=== PATIENT | female | born 1995 | race Caucasian/White ===

== ENCOUNTER 2018-07-11 12:22 | Emergency (ER) | payer OTHER ==
[2018-07-11] MEDS ORDERED: ONDANSETRON 4 MG/2 ML VIAL ONE (13:34)
[2018-07-11 14:02] LABS: Albumin 3.3 g/dL (3.4-5.0); Bilirubin Direct 0.1 mg/dL (0-0.2); Bilirubin Total 0.4 mg/dL (0.2-1.0); Protein, Total 7.6 g/dL (6.4-8.2)
[2018-07-11 14:03] LABS: Absolute Lymphocytes (CBC) 1.1 K/uL (0.7-4.9); Absolute Monocytes 0.6 K/uL (0.1-1.3); Absolute Neutrophil 5.2 K/uL (1.8-8.0); Basophils % 0.3 % (0-1.3); Eosinophils % 0.4 % (0-4.4); Hematocrit 42.4 % (36.0-45.0); Lymphocytes % 15.5 % (15.3-44.8); MCH 29.1 pg (27.0-35.0); MCV 84.3 fL (80-100); MPV 8.2 fL (7.6-11.3); Monocytes % 8.3 % (3.3-12.3); RBC Red Blood Cell Count 5.03 M/uL (3.86-4.86)
[2018-07-11 14:08] LABS: Urine Blood 1+ (NEG); Urine Glucose NEGATIVE (NEG); Urine Protein NEGATIVE (NEG)
[2018-07-11 14:08] LABS: Urine Bacteria >50 /HPF (<20); Urine Culture Reflex Order NOT NEEDED; Urine RBC <5 /HPF (NONE SEEN)
--- NOTE | 2018-07-11 15:46 | RAD REPORT ---
EXAM DESCRIPTION: CT - Abdomen Pelvis W Contrast - 07/11/2018 3:36 pm CLINICAL HISTORY: Abdominal pain. Right lower quadrant pain with vomiting COMPARISON: None. TECHNIQUE: Computed axial tomography of the abdomen and pelvis was obtained. 100 cc Isovue-300 is ad ministered intravenously. Oral contrast was given. All CT scans are performed using dose optimization technique as appropriate and may include automated exposure control or mA/KV adjustment according to patient size. FINDINGS: The liver, spleen, pancreas, adrenals and kidneys appear unremarkable. The appendix is normal caliber. There is no evidence of diverticulitis Uterus lies to the right of midline. The endometrial stripe is prominent. An adnexal mass is not note d IMPRESSION: Prominent endometrial stripe probably related to normal menstrual cycle. Followup pelvic ultrasound in a couple months is recommended for re-evaluation
--- NOTE | 2018-07-11 16:29 | ER ---
Nurse's Notes [facility] Name: Jaciel Snyder Age: 22 yrs Sex: Female : 1995 Arrival Date: 07/11/2018 Time: 12:31 Bed 16 Private MD: Diagnosis: Lower abdominal pain, unspecified;Nausea and vomiting Presentation: 07/11 12:44 Presenting complaint: Patient states: RLQ pain with vomiting since last night. aj Transition of care: patient was not received from another setting of care. Onset of symptoms was July 10, 2018. Risk Assessment: Do you want to hurt yourself or someone else? Patient reports no desire to harm self or others. Initial Sepsis Screen: Does the patient meet any 2 criteria? No. Patient's initial sepsis screen is negative. Does the patient have a suspected source of infection? No. Patient's initial sepsis screen is negative. Care prior to arrival: None. 12:44 Method Of Arrival: Ambulatory 12:44 Acuity: SANDRA 3 aj Triage Assessment: 12:45 General: Appears in no apparent distress. uncomfortable, Behavior is calm, cooperative, aj appropriate for age. Pain: Complains of pain in right lower quadrant. Neuro: Level of Consciousness is awake, alert, obeys commands, Oriented to person, place, time, situation, Appropriate for age. Respiratory: Airway is patent Respiratory effort is even, unlabored, Respiratory pattern is regular, symmetrical. GI: Abdomen is flat, Reports lower abdominal pain, nausea, vomiting. Derm: Skin is intact, is healthy with good turgor, Skin is pink, warm \T\ dry. normal. 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 - Social history:: Smoking status: Patient/guardian denies using tobacco. - Ebola Screening: : Patient negative for fever greater than or equal to 101.5 degrees Fahrenheit, and additional compatible Ebola Virus Disease symptoms Patient denies exposure to infectious person Patient denies travel to an Ebola-affected area in the 21 days before illness onset No symptoms or risks identified at this time. Screenin:40 Abuse screen: Denies threats or abuse. Nutritional screening: No deficits noted. tw2 Tuberculosis screening: No symptoms or risk factors identified. Fall Risk None identified. Assessment: 13:37 General: Appears in no apparent distress. slender, well groomed, Behavior is calm, tw2 cooperative, appropriate for age. Pain: Complains of pain in right lower quadrant. Neuro: Level of Consciousness is awake, alert, obeys commands, Oriented to person, place, time, situation. Cardiovascular: Heart tones S1 S2 Patient's skin is warm and dry. Respiratory: Airway is patent Respiratory effort is even, unlabored, Respiratory pattern is regular, symmetrical, Breath sounds are clear bilaterally. GI: Bowel sounds present X 4 quads. Abd is soft X 4 quads Reports lower abdominal pain, nausea, vomiting. : No signs and/or symptoms were reported regarding the genitourinary system. EENT: Derm: No signs and/or symptoms reported regarding the dermatologic system. Musculoskeletal: Range of motion: intact in all extremities. 14:00 Reassessment: Patient appears in no apparent distress at this time. No changes from tw2 previously documented assessment. Patient and/or family updated on plan of care and expected duration. Pain level reassessed. Patient is alert, oriented x 3, equal unlabored respirations, skin warm/dry/pink. nausea is decreased. 14:51 Reassessment: Patient appears in no apparent distress at this time. No changes from tw2 previously documented assessment. Patient and/or family updated on plan of care and expected duration. Pain level reassessed. Patient is alert, oriented x 3, equal unlabored respirations, skin warm/dry/pink. 15:49 Reassessment: Patient appears in no apparent distress at this time. No changes from tw2 previously documented assessment. Patient and/or family updated on plan of care and expected duration. Pain level reassessed. Patient is alert, oriented x 3, equal unlabored respirations, skin warm/dry/pink. 16:34 Reassessment: Patient appears in no apparent distress at this time. No changes from tw2 previously documented assessment. Patient and/or family updated on plan of care and expected duration. Pain level reassessed. Patient is alert, oriented x 3, equal unlabored respirations, skin warm/dry/pink. Patient states feeling better. Patient states symptoms have improved. Vital Signs: 12:45 BP 123 / 72; Pulse 99; Resp 20; Temp 98.8; Pulse Ox 99% on R/A; Weight 70.31 kg; Height aj 5 ft. 4 in. (162.56 cm); 14:00 BP 114 / 81; Pulse 90; Resp 17; Pulse Ox 99% on R/A; tw2 14:50 BP 117 / 73; Pulse 84; Resp 17; Pulse Ox 100% on R/A; tw2 15:48 BP 124 / 69; Pulse 99; Resp 17; Pulse Ox 99% on R/A; tw2 16:33 BP 125 / 77; Pulse 77; Resp 17; Pulse Ox 99% on R/A; tw2 12:45 Body Mass Index 26.61 (70.31 kg, 162.56 cm) aj ED Course: 12:31 Patient arrived in ED. mr 12:44 Triage completed. aj 12:45 Arm band placed on left wrist. Patient placed in waiting room, Patient notified of wait aj time. 12:56 Edis Krishnan PA is PHCP. cp 12:56 John Vázquez MD is Attending Physician. cp 13:30 Inserted saline lock: 22 gauge in left antecubital area, using aseptic technique. Blood tw2 collected. 13:36 Sidra Hagan, RN is Primary Nurse. tw2 13:39 Bed in low position. Call light in reach. Pulse ox on. NIBP on. tw2 15:[address] via wheelchair. nj 15:36 CT completed. Patient tolerated procedure well. Patient moved back from CT. nj 15:36 CT Abd/Pelvis - W/Contrast In Process Unspecified. EDMS 16:33 No provider procedures requiring assistance completed. IV discontinued, intact, tw2 bleeding controlled, No redness/swelling at site. Pressure dressing applied. Administered Medications: 13:32 Drug: Zofran 4 mg Route: IVP; Site: left antecubital; tw2 14:23 Follow up: Response: No adverse reaction; Nausea is decreased tw2 Outcome: 16:28 Discharge ordered by . cp 16:33 Discharged to home ambulatory. tw2 16:33 Condition: stable 16:33 Discharge instructions given to patient, family, Instructed on discharge instructions, follow up and referral plans. no drinking with medication, no driving heavy equipment, medication usage, Demonstrated understanding of instructions, follow-up care, medications, Prescriptions given X 3. 16:34 Patient left the ED. tw2 Signatures: Dispatcher [employer] EDKeyana Yarbrough, RN FRANCIS marroquin Zaina Maddox mr Edis Krishnan PA PA cp Wise, Tara, RN RN tw2 Ifeanyi Hammond Corrections: (The following items were deleted from the chart) 15:50 14:00 Reassessment: Patient appears in no apparent distress at this time. No changes tw2 from previously documented assessment. Patient and/or family updated on plan of care and expected duration. Pain level reassessed. Patient is alert, oriented x 3, equal unlabored respirations, skin warm/dry/pink. tw2
--- NOTE | 2018-07-11 16:29 | EDPHYS ---
Physician Documentation [facility] Name: Jaciel Snyder Age: 22 yrs Sex: Female : 1995 Arrival Date: 07/11/2018 Time: 12:31 Bed 16 Private MD: ED Physician John Vázquez HPI: 07/11 13:15 This 22 yrs old Female presents to ER via Ambulatory with complaints of cp Abdominal Pain, Vomiting. 13:15 The patient presents with abdominal pain right lower quadrant. Onset: The cp symptoms/episode began/occurred last night. Associated signs and symptoms: Pertinent positives: nausea and vomiting, Pertinent negatives: blood in stools, diarrhea, dysuria, fever, vaginal discharge. The patient has been recently seen at an urgent care, today, for similar complaints, and was sent to the [facility] Emergency Department for further evaluation. 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 - Social history:: Smoking status: Patient/guardian denies using tobacco. - Ebola Screening: : Patient negative for fever greater than or equal to 101.5 degrees Fahrenheit, and additional compatible Ebola Virus Disease symptoms Patient denies exposure to infectious person Patient denies travel to an Ebola-affected area in the 21 days before illness onset No symptoms or risks identified at this time. ROS: 13:20 Constitutional: Negative for body aches, chills, fever. cp 13:20 Eyes: Negative for injury, pain, redness, and discharge. cp 13:20 ENT: Negative for drainage from ear(s), ear pain, sore throat, difficulty swallowing, difficulty handling secretions. 13:20 Respiratory: Negative for cough, shortness of breath, wheezing. 13:20 Abdomen/GI: Positive for abdominal pain, nausea, vomiting, of the right lower quadrant, Negative for diarrhea, constipation. 13:20 Back: Negative for radiated pain. 13:20 : Negative for urinary symptoms, vaginal bleeding, vaginal discharge. 13:20 Skin: Negative for cellulitis, rash. 13:20 Neuro: Negative for altered mental status, headache, weakness. 13:20 All other systems are negative. Exam: 13:25 Constitutional: The patient appears in no acute distress, alert, awake, non-toxic, well cp developed, well nourished, uncomfortable. 13:25 Head/Face: Normocephalic, atraumatic. Eyes: Pupils equal round and reactive to light, cp extra-ocular motions intact. Lids and lashes normal. Conjunctiva and sclera are non-icteric and not injected. Cornea within normal limits. Periorbital areas with no swelling, redness, or edema. ENT: Nares patent. No nasal discharge, no septal abnormalities noted. Tympanic membranes are normal and external auditory canals are clear. Oropharynx with no redness, swelling, or masses, exudates, or evidence of obstruction, uvula midline. Mucous membranes moist. Chest/axilla: Normal chest wall appearance and motion. Nontender with no deformity. No lesions are appreciated. Cardiovascular: Regular rate and rhythm with a normal S1 and S2. No gallops, murmurs, or rubs. Normal PMI, no JVD. No pulse deficits. Respiratory: Lungs have equal breath sounds bilaterally, clear to auscultation and percussion. No rales, rhonchi or wheezes noted. No increased work of breathing, no retractions or nasal flaring. 13:25 Abdomen/GI: Inspection: abdomen appears normal, Bowel sounds: active, all quadrants, Palpation: soft, in all quadrants, moderate abdominal tenderness, in the right lower quadrant, rebound tenderness, is not appreciated, involuntary guarding, is elicited in the right lower quadrant. 13:25 Back: pain, is absent, ROM is normal. 13:25 Skin: cellulitis, is not appreciated, no rash present. 13:25 Neuro: Orientation: to person, place \T\ time. Mentation: is normal, Cerebellar function: is grossly normal, Motor: moves all fours, strength is normal, Sensation: is normal. Vital Signs: 12:45 BP 123 / 72; Pulse 99; Resp 20; Temp 98.8; Pulse Ox 99% on R/A; Weight 70.31 kg; Height aj 5 ft. 4 in. (162.56 cm); 14:00 BP 114 / 81; Pulse 90; Resp 17; Pulse Ox 99% on R/A; tw2 14:50 BP 117 / 73; Pulse 84; Resp 17; Pulse Ox 100% on R/A; tw2 15:48 BP 124 / 69; Pulse 99; Resp 17; Pulse Ox 99% on R/A; tw2 16:33 BP 125 / 77; Pulse 77; Resp 17; Pulse Ox 99% on R/A; tw2 12:45 Body Mass Index 26.61 (70.31 kg, 162.56 cm) aj MDM: 12:56 Patient medically screened. cp 16:27 Data reviewed: vital signs, nurses notes, lab test result(s), radiologic studies, CT cp scan. 16:27 Counseling: I had a detailed discussion with the patient and/or guardian regarding: the cp historical points, exam findings, and any diagnostic results supporting the discharge/admit diagnosis, lab results, radiology results. Response to treatment: the patient's symptoms have markedly improved after treatment. Special discussion: Based on the patient's Hx, exam, and Dx evaluation, there is no indication for emergent surgery or inpatient Tx. It is understood by the patient/guardian that if the Sx's persist or worsen they need to return immediately for re-evaluation. 07/11 13:09 Order name: Urine Microscopic Only cp 07/11 13:09 Order name: Basic Metabolic Panel; Complete Time: 14:47 cp 07/11 15:49 Interpretation: Normal except: CL 108. 07/11 13:09 Order name: CBC with Diff; Complete Time: 14:47 cp 07/11 15:49 Interpretation: Normal except: RBC 5.03; SHAHRZAD% 75.5. 07/11 13:09 Order name: Creatinine for Radiology; Complete Time: 14:47 cp 07/11 13:09 Order name: Hepatic Function; Complete Time: 14:47 cp 07/11 13:09 Order name: Lipase; Complete Time: 14:47 cp 07/11 13:09 Order name: Urine Test (obtain specimen); Complete Time: 14:00 cp 07/11 13:09 Order name: CT Abd/Pelvis - W/Contrast; Complete Time: 15:49 cp 07/11 13:17 Order name: Urine Microscopic Only; Complete Time: 14:47 EDMS 07/11 15:50 Interpretation: Normal except: UWBC 5-10; UBACT >50; SQEPI 20-50. 07/11 14:06 Order name: Urine Dipstick--Ancillary (enter results) 07/11 14:06 Order name: Urine --Ancillary (enter results) 07/11 14:08 Order name: Urine --Ancillary [facility] 07/11 14:08 Order name: Urine Dipstick-Ancillary [facility] 07/11 13:09 Order name: Urine Dipstick-Ancillary (obtain specimen); Complete Time: 14:00 07/11 13:09 Order name: IV Saline Lock; Complete Time: 13:37 cp 07/11 13:09 Order name: Labs collected and sent; Complete Time: 13:37 cp Administered Medications: 13:32 Drug: Zofran 4 mg Route: IVP; Site: left antecubital; tw2 14:23 Follow up: Response: No adverse reaction; Nausea is decreased tw2 Disposition: 07/11/18 16:28 Discharged to Home. Impression: Lower abdominal pain, unspecified, Nausea and vomiting. - Condition is Stable. - Discharge Instructions: Abdominal Pain, Adult, Nausea and Vomiting, Adult. - Prescriptions for Bentyl 20 mg Oral Tablet - take 1 tablet by ORAL route every 6 hours As needed; 20 tablet. Pepcid 20 mg Oral Tablet - take 1 tablet by ORAL route every 12 hours for 10 days; 20 tablet. promethazine 25 mg Oral Tablet - take 1 tablet by ORAL route every 6 hours As needed; 20 tablet. - Medication Reconciliation Form, Thank You Letter, Antibiotic Education, Prescription Opioid Use, Work release form form. - Follow up: Private Physician; When: 1 - 2 days; Reason: Recheck today's complaints. - Problem is new. - Symptoms have improved. Addendum: 07/14/2018 09:04 Co-signature as Attending Physician, John Vázquez MD I agree with the assessment and k dr plan of care. Signatures: Dispatcher [employer] EDIN Keyana Gunter RN RN aj Rittger, Kevin, MD MD [facility] Edis Krishnan PA PA Sidra Hagan RN RN tw2 Corrections: (The following items were deleted from the chart) 07/11 16:34 16:28 07/11/2018 16:28 Discharged to Home. Impression: Lower abdominal pain, tw2 unspecified; Nausea and vomiting. Condition is Stable. Forms are Work release form, Medication Reconciliation Form, Thank You Letter, Antibiotic Education, Prescription Opioid Use. Follow up: Private Physician; When: 1 - 2 days; Reason: Recheck today's complaints. Problem is new. Symptoms have improved. cp
== END 2018-07-11 16:34 | disposition home or self-care (01) ==
LOC: ER 12:22
DX: R11.2 Nausea with vomiting, unspecified (principal); Z88.1 Allergy status to other antibiotic agents
CPT/HCPCS: 36415; 74177; 80048; 80076; 81003; 81015; 81025; 83690; 85025; 96374; 99284; J2405; Q9967

== ENCOUNTER 2019-01-23 10:34 | Emergency (ER) | payer OTHER ==
--- NOTE | 2019-01-23 11:32 | EDPHYS ---
Physician Documentation [facility] Name: Jaciel Snyder Age: 23 yrs Sex: Female : 1995 Arrival Date: 01/23/2019 Time: 10:37 Bed 23 Private MD: ED Physician Edis Pope HPI: 01/23 11:21 This 23 yrs old Female presents to ER via Ambulatory with complaints of cp redness to lower extremities. 11:22 The patient presents with pain, that is acute, tenderness, erythema. The complaints cp affect the left lopez, right lopez. Context: started out as sunburn but has had continued redness and pain. Onset: The symptoms/episode began/occurred 5 day(s) ago. Associated signs and symptoms: Pertinent positives: tingling, warmth, Pertinent negatives fever. Treatment prior to arrival includes: no previous treatment. Historical: - Allergies: 10:52 Rocephin; ss - Home Meds: 10:52 Flonase 50 mcg/actuation Nasal spsn 1 spray 2 times per day [Active]; ss - PMHx: 10:52 None; ss - PSHx: 10:52 Tonsillectomy; ss - Immunization history:: Adult Immunizations up to date. - Social history:: Smoking status: Patient/guardian denies using tobacco. - Ebola Screening: : Patient denies exposure to infectious person Patient denies travel to an Ebola-affected area in the 21 days before illness onset. ROS: 11:24 Eyes: Negative for injury, pain, redness, and discharge. cp 11:24 Constitutional: Negative for body aches, chills, fever, poor PO intake. 11:24 ENT: Negative for drainage from ear(s), ear pain, sore throat, difficulty swallowing, difficulty handling secretions. 11:24 Cardiovascular: Negative for chest pain, palpitations. 11:24 Respiratory: Negative for cough, shortness of breath, wheezing. 11:24 Abdomen/GI: Positive for nausea, Negative for abdominal pain, vomiting, diarrhea, constipation. 11:24 MS/extremity: Positive for erythema, pain, tingling, warmth, of the right lopez and left lopez, Negative for injury or acute deformity. 11:24 Neuro: Negative for altered mental status, headache, weakness. 11:24 All other systems are negative. Exam: 11:27 Constitutional: The patient appears in no acute distress, alert, awake, non-toxic, well cp developed, well nourished. 11:27 Head/Face: Normocephalic, atraumatic. cp 11:27 Skin: noted erythema anterior aspect lower legs, skin warm to touch and marked cp tenderness to palpation. 11:27 Cardiovascular: Rate: normal. cp 11:27 Respiratory: the patient does not display signs of respiratory distress, Respirations: normal. Vital Signs: 10:52 BP 134 / 84; Pulse 76; Resp 16; Temp 98.4(TE); Pulse Ox 99% on R/A; Weight 75.75 kg; ss Height 5 ft. 4 in. (162.56 cm); Pain 3/10; 10:52 Body Mass Index 28.67 (75.75 kg, 162.56 cm) ss MDM: 11:13 Patient medically screened. cp 11:30 Data reviewed: vital signs, nurses notes, and as a result, I will discharge patient. cp 11:30 Counseling: I had a detailed discussion with the patient and/or guardian regarding: the cp historical points, exam findings, and any diagnostic results supporting the discharge/admit diagnosis, to return to the emergency department if symptoms worsen or persist or if there are any questions or concerns that arise at home. Administered Medications: 11:46 Drug: Zofran 4 mg Route: PO; 11:46 Follow up: Response: Medication administered at discharge. ss 11:46 Drug: Tylenol 1000 mg Route: PO; 11:46 Follow up: Response: Medication administered at discharge. 11:46 Drug: Ibuprofen 800 mg Route: PO; 11:46 Follow up: Response: Medication administered at discharge. Disposition: 01/23/19 11:31 Discharged to Home. Impression: Erysipelas - left and right lower legs. - Condition is Stable. - Discharge Instructions: Form - Return To Work, Erysipelas, Antibiotic Medicine, Adult. - Prescriptions for Clindamycin HCl 300 mg Oral Capsule - take 1 capsule by ORAL route every 6 hours for 10 days; 40 capsule. Ibuprofen 800 mg Oral Tablet - take 1 tablet by ORAL route every 8 hours As needed take with food; 30 tablet. Zofran 4 mg Oral Tablet - take 1 tablet by ORAL route every 12 hours As needed; 20 tablet. - Work release form, Medication Reconciliation Form, Thank You Letter, Antibiotic Education, Prescription Opioid Use form. - Follow up: Private Physician; When: 2 - 3 days; Reason: Recheck today's complaints. - Problem is new. - Symptoms have improved. Addendum: 01/27/2019 08:26 Co-signature as Attending Physician, Edis Pope MD I agree with the assessment and c robles plan of care. Signatures: Edis Pope MD MD cha Smirch, Shelby RN RN ss Edis Krishnan PA PA cp Corrections: (The following items were deleted from the chart) 01/23 11:52 11:31 01/23/2019 11:31 Discharged to Home. Impression: Erysipelas - left and right ss lower legs. Condition is Stable. Forms are Medication Reconciliation Form, Thank You Letter, Antibiotic Education, Prescription Opioid Use. Follow up: Private Physician; When: 2 - 3 days; Reason: Recheck today's complaints. Problem is new. Symptoms have improved. cp
--- NOTE | 2019-01-23 11:32 | ER ---
Nurse's Notes [facility] Name: Jaciel Snyder Age: 23 yrs Sex: Female : 1995 Arrival Date: 01/23/2019 Time: 10:37 Bed 23 Private MD: Diagnosis: Erysipelas-left and right lower legs Presentation: 01/23 10:50 Presenting complaint: Patient states: sunburn to bilateral lower extremities that began ss 5 days ago. Pt reports that her thigh feel better, but her shins are still very red and painful to touch. Denies fever. Transition of care: patient was not received from another setting of care. Onset of symptoms was January 18, 2019. Risk Assessment: Do you want to hurt yourself or someone else? Patient reports no desire to harm self or others. Initial Sepsis Screen: Does the patient meet any 2 criteria? No. Patient's initial sepsis screen is negative. Does the patient have a suspected source of infection? No. Patient's initial sepsis screen is negative. Care prior to arrival: None. 10:50 Method Of Arrival: Ambulatory ss 10:50 Acuity: SANDRA 3 ss Triage Assessment: 10:55 General: Appears in no apparent distress. comfortable, Behavior is calm, cooperative, ss Denies fever, feeling ill. Pain: Complains of pain in right leg and left leg Pain currently is 3 out of 10 on a pain scale. at worst was 8 out of 10 on a pain scale. Quality of pain is described as burning, tender, tingling Pain began 5 days ago Is continuous, Aggravated by touching area of redness. EENT: Oral mucosa is dry. Throat is clear. Neuro: Level of Consciousness is awake, alert, obeys commands. Respiratory: Airway is patent Respiratory effort is even, unlabored, Respiratory pattern is regular, symmetrical. Derm: Skin is intact, is healthy with good turgor, Skin is pink, warm \T\ dry. normal, redness noted to bilateral lower extremities. Pt reports extended exposure in sun last Sunday, but reports her sun burn on her shins have not improved. Musculoskeletal: Circulation, motion, and sensation intact. Range of motion: intact in all extremities, Swelling mild swelling noted to bilateral ankles. Historical: - Allergies: 10:52 Rocephin; ss - Home Meds: 10:52 Flonase 50 mcg/actuation Nasal spsn 1 spray 2 times per day [Active]; ss - PMHx: 10:52 None; ss - PSHx: 10:52 Tonsillectomy; ss - Immunization history:: Adult Immunizations up to date. - Social history:: Smoking status: Patient/guardian denies using tobacco. - Ebola Screening: : Patient denies exposure to infectious person Patient denies travel to an Ebola-affected area in the 21 days before illness onset. Screenin:19 Abuse screen: Denies threats or abuse. Denies injuries from another. Nutritional ss screening: No deficits noted. Tuberculosis screening: Never had TB. Fall Risk None identified. Assessment: 11:19 Reassessment: SEE TRIAGE ASSESSMENT. ss Vital Signs: 10:52 BP 134 / 84; Pulse 76; Resp 16; Temp 98.4(TE); Pulse Ox 99% on R/A; Weight 75.75 kg; ss Height 5 ft. 4 in. (162.56 cm); Pain 3/10; 10:52 Body Mass Index 28.67 (75.75 kg, 162.56 cm) ss ED Course: 10:37 Patient arrived in ED. mr 10:52 Triage completed. ss 10:52 Arm band placed on right wrist. ss 11:11 Edis Krishnan PA is PHCP. cp 11:11 Edis Pope MD is Attending Physician. cp 11:19 Divine Calderon, FRANCIS is Primary Nurse. ss 11:19 Patient has correct armband on for positive identification. Placed in gown. Bed in low ss position. Call light in reach. Side rails up X 1. 11:19 Patient maintains SpO2 saturation greater than 95% on room air. ss 11:46 No provider procedures requiring assistance completed. Patient did not have IV access ss during this emergency room visit. Administered Medications: 11:46 Drug: Zofran 4 mg Route: PO; ss 11:46 Follow up: Response: Medication administered at discharge. ss 11:46 Drug: Tylenol 1000 mg Route: PO; ss 11:46 Follow up: Response: Medication administered at discharge. ss 11:46 Drug: Ibuprofen 800 mg Route: PO; ss 11:46 Follow up: Response: Medication administered at discharge. ss Outcome: 11:31 Discharge ordered by . cp 11:46 Discharged to home ambulatory, with family. ss 11:46 Condition: good 11:46 Discharge instructions given to patient, family, Instructed on discharge instructions, follow up and referral plans. medication usage, wound care, Demonstrated understanding of instructions, follow-up care, medications, Prescriptions given X 3. 11:52 Patient left the ED. Signatures: Tan Zaina CalderonDivine, RN RN Edis Krishnan, PA PA cp
[2019-01-23] MEDS ORDERED: IBUPROFEN 400 MG TAB ONE (11:58)
[2019-01-23] MEDS ORDERED: ONDANSETRON 4 MG (ODT) TAB ONE (11:58)
[2019-01-23] MEDS ORDERED: ACETAMINOPHEN 500 MG TAB ONE (11:58)
== END 2019-01-23 11:52 | disposition home or self-care (01) ==
LOC: ER 10:34
DX: A46 Erysipelas (principal)
CPT/HCPCS: 99284

== ENCOUNTER 2020-02-28 17:05 | Emergency (ER) | payer OTHER ==
--- OUTSIDE RECORDS SUMMARY | 2020-02-28 17:08 | XMS REPORT | Continuity of Care Document ---
:1995 Author Organization [facility] t Address [address] [place] [address] Care Team Providers Name Role Phone Unavailable Unavailable Unavailable Payers Payer Name Policy Type Policy Number Effective Date Expiration Date S ource Problems This patient has no known problems. Allergies, Adverse Reactions, Alerts This patient has no known allergies or adverse reactions. Medications This patient has no known medications. Procedures This patient has no known procedures. Results Test Description Test Time Test Comments Results Result [facility] e Comments - MRI LW JNT W/O 2019-11-10 Patient Name: CONT LT 15:59:00 TRANG CORREA Unit No: [id number] Report Has Been Amended EXAMS: CPT CODE: [id number] MRI LW JNT W/[place] [address] Addendum - 11/10/2019 SIGNED 11/10/2019 ADDENDUM: [id number] MRI/[id number] Upon further review, a 4 mm region of decreased signal within the intercondylar fossa medially (coronal image 19) is suspicious for a displaced meniscal fragment (bucket-handle tear) at 1559 Reported and signed by: Hammad Natarajan M.D. Report TECHNIQUE: Multiplanar, multisequence MRI of the left knee without contrast. COMPARISON: None available. FINDINGS: Menisci: Vertical longitudinal signal within the peripheral aspect of the medial meniscal body (coronal image 19) is concerning for a meniscal tear. The lateral meniscus is intact. Ligament and tendons: ACL and PCL are within normal limits. The proximal MCL is thickened proximally without evidence of tear. LCL is normal. The extensor mechanism is unremarkable. Cartilage/ bone: No full-thickness chondral defect. No acute fracture. No suspicious osseous lesion. Other: No significant joint effusion. Soft tissue edema is centered about the medial gastrocnemius origin, which could represent a sprain. IMPRESSION: 1. Suspected vertical longitudinal tear of the medial meniscal body. 2. Soft tissue edema about the medial gastrocnemius origin, possibly secondary to strain. at 1439 Reported and signed by: Hammad Natarajan M.D. CC: Eh Galvez MD Technologist: JUAN DAVID GONZALEZ Transcribed D/ (6134) t.MAGUI.[facility] NAME: TRANG CORREA [address] [place] [address] PHYS: Eh Argueta : 1995 AGE: 24 SEX: F [place] [address] LOC: Y.MRI PHONE #: [phone] EXAM DATE: 11/10/2019 STATUS: REG CLI FAX #: [phone] RAD #: D/C DT PAGE 1 Signed Report Patient Name: TRANG CORREA Unit No: [id number] Report Has Been Amended EXAMS: CPT CODE: [id number] MRI LW JNT W/[place] [address] <Continued> Orig Print D/T: S: 11/10/2019 (5958) [facility] NAME: TRANG CORREA [address] [place] [address] PHYS: Eh Argueta Anuja : 1995 AGE: 24 SEX: F [place] [address] LOC: Y.MRI PHONE #: [phone] EXAM DATE: 11/10/2019 STATUS: REG CLI FAX #: [phone] RAD #: D/C DT PAGE 2 Signed Report - MRI LW JNT W/O 2019-11-10 Patient Name: CONT LT 14:39:00 TRANG CORREA Unit No: [id number] EXAMS: CPT CODE: [id number] MRI LW JNT W/[place] [address] TECHNIQUE: Multiplanar, multisequence MRI of the left knee without contrast. COMPARISON: None available. FINDINGS: Menisci: Vertical longitudinal signal within the peripheral aspect of the medial meniscal body (coronal image 19) is concerning for a meniscal tear. The lateral meniscus is intact. Ligament and tendons: ACL and PCL are within normal limits. The proximal MCL is thickened proximally without evidence of tear. LCL is normal. The extensor mechanism is unremarkable. Cartilage/ bone: No full-thickness chondral defect. No acute fracture. No suspicious osseous lesion. Other: No significant joint effusion. Soft tissue edema is centered about the medial gastrocnemius origin, which could represent a sprain. IMPRESSION: 1. Suspected vertical longitudinal tear of the medial meniscal body. 2. Soft tissue edema about the medial gastrocnemius origin, possibly secondary to strain. at 1439 Reported and signed by: Hammad Natarajan M.D. CC: Eh Galvez MD Technologist: JUAN DAVID GONZALEZ Transcribed D/ (7287) [facility] NAME: TRANG CORREA [address] [place] [address] PHYS: Eh Argueta : 1995 AGE: 24 SEX: F [place] [address] LOC: Y.MRI PHONE #: [phone] EXAM DATE: 11/10/2019 STATUS: REG CLI FAX #: [phone] RAD #: D/C DT PAGE 1 Signed Report Patient Name: TRANG CORREA Unit No: [id number] EXAMS: CPT CODE: [id number] MRI LW JNT W/[place] [address] <Continued> Orig Print D/T: S: 11/10/2019 (3043) [facility] NAME: TRANG CORREA [address] [facility] PHYS: Eh Argueta : 1995 AGE: 24 SEX: F [place] [address] LOC: Y.MRI PHONE #: [phone] EXAM DATE: 11/10/2019 STATUS: REG CLI FAX #: [phone] RAD #: D/C DT PAGE 2 Signed Report
--- NOTE | 2020-02-28 17:50 | EDPHYS ---
Physician Documentation [facility] Name: Jaciel Snyder Age: 24 yrs Sex: Female : 1995 Arrival Date: 02/28/2020 Time: 17:18 Bed 19 Private MD: ED Physician Edis Pope HPI: 02/27 17:32 This 24 yrs old Female presents to ER via Wheelchair with complaints of Right kb Ankle Injury. 17:32 The patient presents with an injury, pain, that is acute, swelling, tenderness. The kb complaints affect the right ankle. Onset: The symptoms/episode began/occurred 45 minute(s) ago. Context: The problem was sustained outdoors, resulted from stepped in a hole, The mechanism of injury is unknown. The patient is unable to bear weight. The patient is not able to ambulate. Associated signs and symptoms: Pertinent positives: swelling, Pertinent negatives: calf tenderness, fever, nausea, numbness, rash, tingling, vomiting, warmth, weakness. Modifying factors: The symptoms are alleviated by nothing, the symptoms are aggravated by weight bearing. Severity of symptoms: At their worst the symptoms were moderate, in the emergency department the symptoms are unchanged. The patient has not experienced similar symptoms in the past. The patient has not recently seen a physician. 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 - Social history:: Smoking status: . ROS: 17:31 Constitutional: Negative for fever, chills, and weight loss, Cardiovascular: Negative kb for chest pain, palpitations, and edema, Respiratory: Negative for shortness of breath, cough, wheezing, and pleuritic chest pain, Abdomen/GI: Negative for abdominal pain, nausea, vomiting, diarrhea, and constipation, Skin: Negative for injury, rash, and discoloration, Neuro: Negative for headache, weakness, numbness, tingling, and seizure. 17:31 MS/extremity: Positive for injury or acute deformity, pain, swelling, tenderness, of the right ankle. Exam: 17:31 Constitutional: This is a well developed, well nourished patient who is awake, alert, kb and in no acute distress. Head/Face: Normocephalic, atraumatic. Chest/axilla: Normal chest wall appearance and motion. Nontender with no deformity. No lesions are appreciated. Cardiovascular: Regular rate and rhythm with a normal S1 and S2. No gallops, murmurs, or rubs. Normal PMI, no JVD. No pulse deficits. Respiratory: Lungs have equal breath sounds bilaterally, clear to auscultation and percussion. No rales, rhonchi or wheezes noted. No increased work of breathing, no retractions or nasal flaring. Abdomen/GI: Soft, non-tender, with normal bowel sounds. No distension or tympany. No guarding or rebound. No evidence of tenderness throughout. Skin: Warm, dry with normal turgor. Normal color with no rashes, no lesions, and no evidence of cellulitis. Neuro: Awake and alert, GCS 15, oriented to person, place, time, and situation. Cranial nerves II-XII grossly intact. Motor strength 5/5 in all extremities. Sensory grossly intact. Cerebellar exam normal. Normal gait. 17:31 Musculoskeletal/extremity: Extremities: grossly normal except: noted in the right ankle: pain, swelling, tenderness, ROM: limited active range of motion due to pain, Circulation is intact in all extremities. Sensation intact. Weight bearing: is unable to bear weight. Vital Signs: 17:20 BP 110 / 70; Pulse 79; Resp 14; Temp 98.1(TE); Pulse Ox 98% ; Weight 74.84 kg; Height 5 sv ft. 4 in. (162.56 cm); 18:29 BP 110 / 70; Pulse 79; Resp 15; Pulse Ox 98% ; ll1 17:20 Body Mass Index 28.32 (74.84 kg, 162.56 cm) sv MDM: 17:23 Patient medically screened. kb 17:32 Data reviewed: vital signs, nurses notes. Data interpreted: Pulse oximetry: on room air kb is 98 %. Interpretation: normal. 17:50 Counseling: I had a detailed discussion with the patient and/or guardian regarding: the kb historical points, exam findings, and any diagnostic results supporting the discharge/admit diagnosis, radiology results, the need for outpatient follow up, a orthopedic surgeon, to return to the emergency department if symptoms worsen or persist or if there are any questions or concerns that arise at home. 02/27 17:23 Order name: Ankle Right 3 View XRAY; Complete Time: 07:58 kb 02/27 17:34 Order name: Ice pack; Complete Time: 17:35 kb 02/27 18:05 Order name: Misc. Order: orthoboot; Complete Time: 18:28 sv Administered Medications: 17:49 Drug: Zofran (Ondansetron) 4 mg Route: PO; ll1 18:29 Follow up: Response: No adverse reaction; RASS: Alert and Calm (0) ll1 17:49 Drug: [place] (7.5 mg-325 mg) 1 tabs Route: PO; ll1 18:29 Follow up: Response: No adverse reaction; Pain is decreased; RASS: Alert and Calm (0) ll1 Disposition: 02/28 10:27 Co-signature as Attending Physician, Edis Pope MD I agree with the assessment and carlos plan of care. Disposition: 02/28/20 17:50 Discharged to Home. Impression: Sprain of ankle. - Condition is Stable. - Discharge Instructions: Ankle Sprain, [id number]. - Prescriptions for Diclofenac Sodium 75 mg Oral Tablet, Delayed Release (E.C.) - take 1 tablet by ORAL route 2 times per day As needed; 30 tablet. - Medication Reconciliation Form, Thank You Letter, Antibiotic Education, Prescription Opioid Use form. - Follow up: Emergency Department; When: As needed; Reason: Worsening of condition. Follow up: Private Physician; When: 2 - 3 days; Reason: Recheck today's complaints, Continuance of care, Re-evaluation by your physician. Signatures: Dispatcher [employer] Tesha Muñiz, KARISSA-C HULL INSPECTOR-Thao Gallardo, RN RN Edis Fields MD MD cha Lewis, Lynsay RN RN ll1 Corrections: (The following items were deleted from the chart) 02/27 18:04 17:50 Crutches ordered. kb jp3 18:05 17:50 Splint - Ankle: Aircast ordered. kb sv 18:29 17:50 02/28/2020 17:50 Discharged to Home. Impression: Sprain of ankle. Condition is ll1 Stable. Forms are Medication Reconciliation Form, Thank You Letter, Antibiotic Education, Prescription Opioid Use. Follow up: Emergency Department; When: As needed; Reason: Worsening of condition. Follow up: Private Physician; When: 2 - 3 days; Reason: Recheck today's complaints, Continuance of care, Re-evaluation by your physician. kb
--- NOTE | 2020-02-28 17:50 | ER ---
Nurse's Notes [facility] Name: Jaciel Snyder Age: 24 yrs Sex: Female : 1995 Arrival Date: 02/28/2020 Time: 17:18 Bed 19 Private MD: Diagnosis: Sprain of ankle Presentation: 02/27 17:18 Chief complaint: Patient states: right ankle injury after falling into a hole in the sv ground. Coronavirus screen: Patient denies a cough. Patient denies shortness of breath or difficulty breathing. Patient denies measured and/or subjective temperature greater than 100.4F prior to today's visit. Patient denies travel on a cruise ship or to a country the [facility] currently lists as an affected area. Patient denies contact with known and/or suspected case of COVID-19. Proceed with normal triage. Ebola Screen: No symptoms or risks identified at this time. Risk Assessment: Do you want to hurt yourself or someone else? Patient reports no desire to harm self or others. Onset of symptoms was February 28, 2020. 17:18 Method Of Arrival: Wheelchair sv 17:18 Acuity: SANDRA 4 sv 17:20 Initial Sepsis Screen: Does the patient meet any 2 criteria? No. Patient's initial sv sepsis screen is negative. Does the patient have a suspected source of infection? No. Patient's initial sepsis screen is negative. Triage Assessment: 17:19 General: Appears in no apparent distress. uncomfortable, Behavior is calm, cooperative, sv appropriate for age. Pain: Complains of pain in right ankle. Neuro: Level of Consciousness is awake, alert, obeys commands, Oriented to person, place, time, situation. Respiratory: Respiratory effort is even, unlabored. 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 - Social history:: Smoking status: . Screenin:31 Abuse screen: Denies threats or abuse. Nutritional screening: No deficits noted. ll1 Tuberculosis screening: No symptoms or risk factors identified. Fall Risk Fall in past 12 months (25 points). Ambulatory Aid- Crutches/Cane/Walker (15 pts). Gait- Impaired (20 pts.). Total Quarles Fall Scale indicates High Risk Score (45 or more points). Fall prevention measures have been instituted. Side Rails Up X 2 Placed Close to Nursing Station Frequent Obs/Assessments Occuring As available patient and family educated on Fall Prevention Program and Strategies. Assessment: 17:30 General: Appears in no apparent distress. Behavior is calm, cooperative. Pain: ll1 Complains of pain in R ankle Quality of pain is described as aching, Pain began. Musculoskeletal: Circulation, motion, and sensation intact. Capillary refill < 3 seconds, Tenderness present in R ankle Reports pain in R ankle. Injury Description: Bruise. 18:27 Reassessment: Patient appears in no apparent distress at this time. No changes from ll1 previously documented assessment. Patient and/or family updated on plan of care and expected duration. Pain level reassessed. Patient is alert, oriented x 3, equal unlabored respirations, skin warm/dry/pink. PMS intact pre and post boot application. Tolerated well. Vital Signs: 17:20 BP 110 / 70; Pulse 79; Resp 14; Temp 98.1(TE); Pulse Ox 98% ; Weight 74.84 kg; Height 5 sv ft. 4 in. (162.56 cm); 18:29 BP 110 / 70; Pulse 79; Resp 15; Pulse Ox 98% ; ll1 17:20 Body Mass Index 28.32 (74.84 kg, 162.56 cm) sv ED Course: 17:18 Patient arrived in ED. bp1 17:19 Triage completed. sv 17:19 Arm band placed on. sv 17:23 Tesha Steward FNP-C is PHCP. kb 17:23 Edis Pope MD is Attending Physician. kb 17:23 Rolanda Narayanan, FRANCIS is Primary Nurse. ll1 17:31 Patient has correct armband on for positive identification. Placed in gown. Bed in low ll1 position. Call light in reach. Side rails up X 1. 17:55 Ankle Right 3 View XRAY In Process Unspecified. EDMS 18:27 No provider procedures requiring assistance completed. Patient did not have IV access ll1 during this emergency room visit. 18:34 3D boot applied to right foot. jp3 Administered Medications: 17:49 Drug: Zofran (Ondansetron) 4 mg Route: PO; ll1 18:29 Follow up: Response: No adverse reaction; RASS: Alert and Calm (0) ll1 17:49 Drug: [place] (7.5 mg-325 mg) 1 tabs Route: PO; ll1 18:29 Follow up: Response: No adverse reaction; Pain is decreased; RASS: Alert and Calm (0) ll1 Outcome: 17:50 Discharge ordered by MD. ramírez 18:28 Discharged to home ambulatory. ll1 18:28 Condition: stable 18:28 Discharge instructions given to patient, Instructed on discharge instructions, follow up and referral plans. medication usage, crutch walking, Demonstrated understanding of instructions, follow-up care, medications, crutch walking, splint care, Prescriptions given X 1. 18:29 Patient left the ED. ll1 Signatures: Dispatcher [employer] EDMS Tesha Steward, Thao Pinto RN RN sv Shankar Alvarez jp3 Rolanda Narayanan RN RN ll1 Columba Jain bp1 Corrections: (The following items were deleted from the chart) 17:22 17:20 Pulse 79bpm; Resp 14bpm; Pulse Ox 98%; Temp 98.1F Temporal; 74.84 kg; Height 5 sv ft. 4 in.; BMI: 28.3; sv 18:31 18:27 Reassessment: Patient appears in no apparent distress at this time. No changes ll1 from previously documented assessment. Patient and/or family updated on plan of care and expected duration. Pain level reassessed. Patient is alert, oriented x 3, equal unlabored respirations, skin warm/dry/pink. ll1
[2020-02-28] MEDS ORDERED: HYDROCODONE/APAP 7.5/325 MG TAB ONE (17:53)
[2020-02-28] MEDS ORDERED: ONDANSETRON 4 MG (ODT) TAB ONE (17:53)
--- NOTE | 2020-02-28 18:01 | RAD REPORT ---
EXAM DESCRIPTION: RAD - Ankle Right 3 View - 02/28/2020 5:55 pm CLINICAL HISTORY: Right ankle pain FINDINGS: No fracture or dislocation is seen.
[2020-02-28 19:07] VITALS: BP 110/70; TEMP 98.1; O2SAT 98
== END 2020-02-28 18:29 | disposition home or self-care (01) ==
LOC: ER 17:05
DX: S93.401A Sprain of unspecified ligament of right ankle, initial encounter (principal); X58.XXXA Exposure to other specified factors, initial encounter; Y93.01 Activity, walking, marching and hiking; Y92.89 Other specified places as the place of occurrence of the external cause; Z88.1 Allergy status to other antibiotic agents; Z91.048 Other nonmedicinal substance allergy status
CPT/HCPCS: 99284

== ENCOUNTER 2023-02-19 21:31 | Emergency (ER) | payer BC, OTHER, SELFPAY ==
--- OUTSIDE RECORDS SUMMARY | 2023-02-19 21:35 | XMS REPORT | Continuity of Care Document ---
:1995 Author Organization [facility] t Address [address] [place] [address]. [address] [place] [address] Care Team Providers Name Role Phone DOMONIQUEAMBER KIRK Primary Care Physician Unavailable Sally Ulloa Attending Clinician Unavailable RIVER SANTIAGO Attending Clinician Unavailable River Guzman Attending Clinician ALEX REID Attending Clinician Unavailable Alex Reid DO Attending Clinician Gena Larsen Attending Clinician Unavailable Mallika Logan Attending Clinician Unavailable Jonathan Kapoor Attending Clinician Unavailable Provider, [facility] Attending Clinician Unavailable Az Daly Attending Clinician [place] EL Attending Clinician Unavailable Doctor Unassigned, Stella Attending Clinician Unavailable Eh Galvez Attending Clinician Unavailable ALEX REID Admitting Clinician Unavailable Gena Larsen Admitting Clinician Unavailable Jonathan Kapoor Admitting Clinician Unavailable Physician, No Primary or Family Admitting Clinician Unavaila ble Payers Payer Name Policy Type Policy Number Effective Date Expiration Date [id number] 2019 00:00:00 Problems Condition Condition Condition Status Onset Resolution Last Treating Co mments Source Name Details Category Date Date Treatment Clinician Date Disease Active Uni vers of unknown of unknown 504 it y of anatomic anatomic 00:00: [place] location location 00 Medica l Branch Vaginal Vaginal Disease Active Univers bleeding bleeding 504 [place] affecting [place] [facility] No known No known Disease Unive rs active active ity of problems problems [facility] Allergies, Adverse Reactions, Alerts Allergy Allergy Status Severity Reaction(s) Onset Inactive Treating Comm ents Source Name Type Date Date Clinician TRAZODON DRUG Active High Anaphylaxis Uni vers E INGREDI 5-04 ity of 00:00: [place] [facility] Trazodon Drug Active Anaphylaxis Uni vers e Allergy 04 ity of 00:00: [place] 00 [facility] adhesive DA Active U RASH/RAW 2021-08 [facility] SKIN 0-06 [facility] [place] trazodon DA Active U SINUS 2021-08 [facility] e SWELLING 0-06 [facility] [place] ceftriax DA Active U ANAPHYLACTIC 2021-08 HC A one 0-06 [facility] 00:[facility] [place] trazodon DA Active SV SHORTNESS OF HC A e BREATH 9-03 [facility] 00:[facility]: [facility] [place] ceftriax DA Active SV ANAPHYLAXIS 2020-08 [facility] one 0-06 [facility] 00:[facility]: [facility] [place] ceftriax DA Active SV 2020-08 [facility] one 0-06 [facility] 00:[facility] [place] CEFTRIAX DRUG Active High Anaphylaxis 2019-08 Uni vers ONE INGREDI 0-04 ity of SODIUM 00:00: [place] 00 [facility] Ceftriax Propensi Active Anaphylaxis 2019-08 U nivers one ty to 0-04 ity of Sodium adverse 00:00: [place] reaction 00 [facility] NO KNOWN Drug Active Univers ALLERGIE Class ity of S [facility] Social History Social Habit Start Date Stop Date Quantity Comments Source ASSERTION [facility] Exposure to 2022-12-06 2022-12-[address] [facility] SARS-CoV-2 00:00:00 11:58:00 [facility] (event) Branch Alcohol intake 2022-12-16 2022-12-[address] [facility] 00:00:00 00:00:00 (finding) [facility] Tobacco use and 2022-12-14 2022-12-14 Smokeless tobacco Un iversity of exposure 00:00:00 00:00:00 non-user [facility] History of 2018-08-13 [facility]igarette [facility] use 00:00:00 [facility] Sex Ass[birth year] Universit y of 00:00:00 00:00:00 [facility] Smoking Status Start Date Stop Date Source Unknown if ever smoked [facility] Ex-smoker 2022-12-14 00:00:00 2022-12-14 00:00:00 [facility] Never smoker [facility] Medications Ordered Filled Start Stop Current Ordering Indication Dosage Frequency Signature Comments Components Source Medication Medication Date Date Medication? Clinician (SIG) Name Name progesteron 2020-0 Yes 1 CAPSULE U nivers e 200 mg 9-28 AT BEDTIME ity o f capsule 00:00: EVERY [place] [address] CYCLE ONCE Medical A DAY Branch progesteron 2020-0 Yes 1 CAPSULE U nivers e 200 mg 9-28 AT BEDTIME ity o f capsule 00:00: EVERY [place] 00 CYCLE ONCE Medical A DAY Branch progesteron 2020-0 Yes 1 CAPSULE U nivers e 200 mg 9-28 AT BEDTIME ity o f capsule 00:00: EVERY [place] [address] CYCLE ONCE Medical A DAY Branch Vital Signs Vital Name Observation Time Observation Value Comments Source Systolic blood 2022-12-16 17:00:00 122 mm[Hg] Univer sity of pressure [facility] Diastolic blood 2022-12-16 17:00:00 77 mm[Hg] Unive rsity of pressure [facility] Heart rate 2022-12-16 17:00:00 85 /min [facility] Body temperature 2022-12-16 17:00:00 37.22 Flori [facility] Res[facility] rate 2022-12-16 17:00:00 16 /min [facility] Body height 2022-12-16 17:00:00 165.1 cm [facility] Body weight 2022-12-16 17:00:00 74.844 kg [facility] [place] [facility] BMI 2022-12-16 17:00:00 27.46 kg/m2 [facility] [place] [facility] Oxygen saturation in 2022-12-16 17:00:00 99 /min University of Arterial blood by [facility] [place] Pulse oximetry Branch Systolic blood 2022-12-14 19:33:00 120 mm[Hg] Univer sity of pressure [place] [facility] Diastolic blood 2022-12-14 19:33:00 75 mm[Hg] Unive rsity of pressure [place] [facility] Heart rate 2022-12-14 19:33:00 65 /min [facility] [place] [facility] Respiratory rate 2022-12-14 19:33:00 18 /min Univ ers[facility] [place] [facility] Oxygen saturation in 2022-12-14 19:33:00 98 /min University [facility] Arterial blood by [facility] [place] Pulse oximetry Branch Body temperature 2022-12-14 15:22:00 37.28 Flori Univ ers[facility] [place] [facility] Body height 2022-12-14 15:22:00 160 cm [facility] [place] [facility] Body weight 2022-12-14 15:22:00 75.751 kg [facility] [place] [facility] BMI 2022-12-14 15:22:00 29.58 kg/m2 [facility] [place] [facility] Systolic blood 2020-05-16 22:28:00 118 mm[Hg] Univer sity of pressure [place] [facility] Diastolic blood 2020-05-16 22:28:00 72 mm[Hg] Unive rsity of pressure [place] [facility] Heart rate 2020-05-16 22:28:00 98 /min [facility] [place] [facility] Body temperature 2020-05-16 22:28:00 37.33 Flori Univ ers[facility] [place] [facility] Respiratory rate 2020-05-16 22:28:00 18 /min [facility] [place] [facility] Body height 2020-05-16 22:28:00 170.2 cm [facility] [place] [facility] Body weight 2020-05-16 22:28:00 78.472 kg [facility] [place] [facility] BMI 2020-05-16 22:28:00 27.10 kg/m2 [facility] [place] [facility] Oxygen saturation in 2020-05-16 22:28:00 99 /min University Arterial blood by [facility] [place] Pulse oximetry Branch Procedures Procedure Date / Time Performing Clinician Source Performed ASSIGNMENT OF BENEFITS 2022-12-16 17:24:48 Doctor Unassigned, No [facility] Name Medical Branch CONSENT/REFUSAL FOR 2022-12-16 16:54:20 Doctor Unassigned, No [facility] Name [facility] [place] US FIRST 2022-12-14 18[facility]01:24 [facility] L[facility] 14 Medical B ranch WEEKS WITH TRANSVAGINAL NOTICE OF PRIVACY 2022-12-14 17:29:41 Doctor Unassigned, No [facility] PRACTICES Name Medical Branch CONSENT/REFUSAL FOR 2022-12-14 17:28:13 Doctor Unassigned, No [facility] COMP. METABOLIC PANEL 2022-12-14 17:05:00 [facility] ([id number] TOTAL BETA HCG ASSAY 2022-12-14 17:05:00 Alex Reid [facility] CBC WITH DIFF 2022-12-14 17:05:00 Alex Reid [facility] POCT TEST 2022-12-14 15:37:00 [facility] 2022-12-14 15:36:00 [facility] [id number] 2021-05-19 00:00:00 [facility] [id number] 2021-05-19 00:00:00 [facility] [id number] 2021-05-19 00:00:00 [facility] [id number] 2021-05-19 00:00:00 [facility] Encounters Start End Encounter Admission Attending Care Care Encounter Source Date/Time Date/Time Type Type Clinicians Facility Department ID 2021-09-07 Outpatient JAMILA Ulloa [facility] [id number] Common 11:30:43 Sally Sterling09 [facility] 2021-09-07 Outpatient JAMILA Ulloa [facility] [id number] Common 11:17:12 Sally [address] [facility] 2022-12-16 2022-12-16 Emergency X JACK, [facility] ERT [id number] Univers 12:01:00 12:38:00 RIVER ity [facility] 2022-12-16 2022-12-16 Emergency Jack, [facility] [id number] Univers 12:01:00 12:38:00 Riverjean paul CASTRO [id number] i ty of [place] 4.2.7.2.686 [facility] [id number] [address] 2022-12-14 2022-12-14 Emergency X REID, [facility] ERT [id number] Univers 10:24:00 14:53:00 ALEX liujean paul [facility] 2022-12-14 2022-12-14 Emergency [facility] [id number] Univers 10:24:00 14:53:00 Alex CASTRO [id number] i ty of [place] 4.2.7.2.686 [facility] [id number] [address] 2022-05-19 2022-05-19 Outpatient ALECIA Larsen, [facility] DAYS [id number] [facility] 05:49:00 05:49:00 Gena 07 [facility] [place] 2022-04-15 2022-04-15 Emergency EM Yuriy, [facility] JOSE [id number] [facility] 13:13:00 16:20:00 Mallika 98 [facility] [place] 2021-05-18 2021-05-21 Inpatient ALECIA Kapoor, [facility] OBPP [id number] [facility] 19:45:00 12:45:00 Jonathan 72 [facility] [place] 2020-05-16 2020-05-16 Urgent Provider, [facility] [id number] Univers 17:23:58 17:43:58 Care Vendor [facility] [id number] ity [facility] 4.2.7.2.686 Ramos as Professio [phone] Ms dical nal 044 Branch Office [address] One 2020-05-16 2020-05-16 Outpatient Addie [facility] [id number] Univers 17:40:00 17:40:00 [place] itjean paul of [facility] 2020-05-16 2020-05-16 Letter Doctor ROSSI [id number] Univers 00:00:00 00:00:00 (Out) Unassigned, COY 350.1.13.10 ity of Stella [facility] 4.2.7.2.686 Ramos as [id number] [facility] 044 [place] 2019-11-10 2019-11-10 Outpatient LUISITO CmTO RADI [id number] [facility] 13:04:00 13:04:00 Stauffer [facility] [place] [facility] Results Test Description Test Time Test Comments Results Result Comments Source TOTAL BETA HCG ASSAY 2022-12-14 18:24:24 Test Item Value Reference Range Interpretation Comme nts BETA HCG (test code = 437.01 See_Comment [Auto mated message] The 8232763388) system which ge nerated this result transmit emily reference range : Non- fe male and male patients: <5 mIU/mL. The reference r erick was not used to interpr et this result as aroldo l/abnormal. GABRIEL (test code = GABRIEL) Gestational Age ?Range (mIU/mL) 1-10 ?Weeks ?31-07278387-66 Weeks ?27245-76828531-60 Weeks ?5632-54728026-06 Weeks ?6294-170393 Biotin has been reported to cause a negative bias, interpret results relative to patient's use of biotin. [facility] (37299)2022-12-14 17:37:40 Test Item Value Reference Range Interpretation Comments NA (test code = 139 mmol/L 135-145 3607857492) K (test code = 4.3 mmol/L 3.5-5.0 1884081081) CL (test code = 105 mmol/L 98-108 2407625533) CO2 TOTAL (test code 24 mmol/L 23-31 = 2386084008) AGAP (test code = 10 2-16 5271100470) BUN (test code = 10 mg/dL 7-23 2556882043) GLUCOSE (test code = 102 mg/dL 70-110 3073166911) CREATININE (test code 0.70 mg/dL 0.50-1.04 = 2498344682) TOTAL BILI (test code 0.4 mg/dL 0.1-1.1 = 6505266836) CALCIUM (test code = 9.4 mg/dL 8.6-10.6 3541391107) T PROTEIN (test code 7.7 g/dL 6.3-8.2 = 4015227732) ALBUMIN (test code = 4.5 g/dL 3.5-5.0 6017001336) ALK PHOS (test code = 56 U/L 34-122 4127880129) ALTv (test code = 24 U/L 5-35 1742-6) AST(SGOT) (test code 27 U/L 13-40 = 9683423251) eGFR (test code = 100.4 mL/min/1.73m2 0474160061) GABRIEL (test code = GABRIEL) Association of Glomerular Filtration Rate (GFR) and Staging of Kidney Disease* + + +- +| GFR (mL/min/1.73 m2) ?| With Kidney Damage ?| ?Without Kidney Damage+ ------+ ----+ ------+| ?>90 ?| ?Stage one ?| ? Normal ?+ -+ + -+| ?60-89 ?| ?Stage two ?| ? Decreased GFR ? + + +- +| ?30-59 ?| ?Stage three ?| ? Stage three ? + + +- +| ?15-29 ?| ?Stage four ? | ? Stage four ?+ -+ + -+| ?<15 (or dialysis) ? ?| ?Stage five ? | ? Stage five ?+ -+ + -+ *Each stage assumes the associated GFR level has been in effect for at least three months. ?Stages 1 to 5, with or without kidney disease, indicate chronic kidney disease. Notes: Determination of stages one and two (with eGFR >59mL/min/1.73 m2) requires estimation of kidney damage for at least three months as defined by structural or functional abnormalities of the kidney, manifested by either:Pathological abnormalities or Markers of kidney damage (including abnormalities in the composition of the blood or urine or abnormalities in imaging tests). [facility] WITH [id number] 17:23:18 Test Item Value Reference Range Interpretation Comments WBC (test code = 9.64 See_Comment [Automated message] 0890-2) The system Wideo generated this result transmitted ref erence range: 4.30 - 1 1.10 10*3/?L. The re ference range was not u sed to interpret this result as normal/abnor mal. RBC (test code = 4.50 See_Comment [Automated message] 959-8) The system Wideo generated this result transmitted ref erence range: 3.93 - 5 .25 10*6/?L. The re ference range was not u sed to interpret this result as normal/abnor mal. HGB (test code = 13.0 g/dL 11.6-15.0 718-7) HCT (test code = 39.2 % 35.7-45.2 4544-3) MCV (test code = 87.1 fL 80.6-95.5 787-2) MCH (test code = 28.9 pg 25.9-32.8 785-6) MCHC (test code = 33.2 g/dL 31.6-35.1 786-4) RDW-SD (test code 39.7 fL 39.0-49.9 = 76600-0) RDW-CV (test code 12.4 % 12.0-15.5 = 788-0) PLT (test code = 306 See_Comment [Automated message] 757-3) The system Wideo generated this result transmitted ref erence range: 166 - 35 8 10*3/?L. The re ference range was not u sed to interpret this result as normal/abnor mal. MPV (test code = 9.9 fL 9.5-12.9 32758-6) NRBC/100 WBC (test 0.0 See_Comment [Automat ed message] code = 2075937404) The syste m which generated this result transmitted ref erence range: 0.0 - 10 .0 /100 WBCs. The refer ence range was not u sed to interpret this result as normal/abnor mal. NRBC x10^3 (test See_Comment [Automated message] code = 5549474362) The syste m which generated this result transmitted ref erence range: 10*3/?L. The reference range was not used to interpr et this result as normal/abnormal . GRAN MAT (NEUT) % 66.4 % (test code = 770-8) IMM GRAN % (test 0.20 % code = 6083512201) LYMPH % (test code 26.6 % = 736-9) MONO % (test code 5.6 % = 5905-5) EOS % (test code = 0.7 % 713-8) BASO % (test code 0.5 % = 706-2) GRAN MAT 6.40 10*3/uL 1.88-7.09 x10^3(ANC) (test code = 7678147519) IMM GRAN x10^3 0.00-0.06 (test code = 2571906395) LYMPH x10^3 (test 2.56 10*3/uL 1.32-3.29 code = 731-0) MONO x10^3 (test 0.54 10*3/uL 0.33-0.92 code = 742-7) EOS x10^3 (test 0.07 10*3/uL 0.03-0.39 code = 711-2) BASO x10^3 (test 0.05 10*3/uL 0.01-0.07 code = 704-7) [facility] [id number] 15:37:00 Test Item Value Reference Range Interpretation Comments POCT PREG (test code = 1605) POSITIVE On board controls acceptable with present C Line (test code = 3574) POCT PREG LOT # (test code = 3575) [id number] POCT PREG TEST DATE (test 09/12/2023 code = 3576) Lab Interpretation (test code = Normal 64907-6) [facility] MIS[facility]LL[facility]OUS [id number] 11:51:00 Test Item Value Reference Range Interpretation Comments CHEMISTRY TEST (test code = POC CHROMOSOME TESTC) CHEMISTRY TEST RESULT (test SENT TO OFFICE code = RESULTC) [id number] 14:52:00 Test Item Value Reference Range Interpretation Comments SURGICAL (test code = SR) R UN DATE: 05/22/22 [facility] PAGE 1 RUN TIME: 2 Specimen Inquiry RUN USER: INTERFACE P ATIENT: TRANG SHIELDS LOC: [place] U #: [id number] AGE/SX: 26/F ROOM: RE05/19/22PHILIP DR: Gena Larsen MD : 95 BED: DIS: STATUS: JAZMYNE BENNETT TLOC: SPEC #: [id number] RECD: 05/19/22 STATUS: DREA REQ #: [id number] CHANTE: 05/19/[address] [facility] [address]: Gena Larsen MD ENTERED: 05/19/22 SP TYPE: SURGICAL OTHR DR: DOES_NOT KNOW ORDERED: ANATOMIC SPEC, SPEC TRACK, 79830 COPIES TO: DOES_NOT KNOW Gena Larsen MD [id number] [place] [address] PROCEDURES: [id number] (05/19/22) TISSUES: A. PRODUCTS OF CONCEPTION - SPONTANEOUS/MISSED FINAL DIAGNOSIS Products of conception:- Chorionic villi present without proliferation or significant atypia.- Decidua present.- Negative for malignancy. GROSS DESCRIPTION Specimen received in formalin, labeled with patient's name, MRN, date of and POC. Itconsists of a 9.5 x 5.1 x 2.3 cm aggregate of multiple dark red blood clots and dos santos brownsoft tissue. No parts identified grossly. Senior Program Planner sections are submitted in3 cassettes A1-A3.aj 05/19/22 Unless gross only, the diagnosis is based upon microscopic examination.Immunohistochemistr y: This test was developed and its performance characteristicsdetermined by this laboratory. It has not been approved nor does it need approval by Gavin FDA. Appropriate positive and negative controls are reviewed and judged to beacceptable. This laboratory is certified under the Clinical Laboratory ImprovementAmendments (CLIA-88) as qualified to perform high complexity clinical laboratory testing. CLINICAL INFORMATION 05/19/22, OUT OF BODY 0824A, IN FORMALIN 0851, MISSED BAORTION. CONTINUED ON NEXT PAGE R UN DATE: 05/22/22 [facility] PAGE 2 RUN TIME: 1452 Specimen Inquiry RUN USER: INTERFACE S PEC #: [id number] PATIENT: TRANG SHIELDS #[id number] (Continued) Signed _ Sherri Ayers 05/22/22 1452 END OF REPORT [id number] 09:41:00 Test Item Value Reference Range Interpretation Comments GLUBED (test code = GLUBED) 87 mg/dL 65-110 N CBC W/AUTO [id number] 15:00:00 Test Item Value Reference Range Interpretation Comments WHITE BLOOD CELL (test code = WBC) 11.2 K/mm3 6.5-12.3 N RED BLOOD CELL (test code = RBC) 4.37 M/mm3 3.51-4.69 N HEMOGLOBIN (test code = HGB) 13.0 g/dL 10.1-13.8 N HEMATOCRIT (test code = HCT) 37.8 % 32.5-41.8 N MEAN CELL VOLUME (test code = MCV) 86.5 fL 84.6-96.6 N MEAN CELL HGB (test code = MCH) 29.7 pg 27.3-33.9 N MEAN CELL HGB CONCETRATION (test 34.4 gm/dL 32.0-34.2 H code = MCHC) RED CELL DISTRIBUTION WIDTH (test 12.4 % 12.2-16.3 N code = RDW) PLATELET COUNT (test code = PLT) 314 K/mm3 134-363 N MEAN PLATELET VOLUME (test code = 9.6 fL 9.2-12.7 N MPV) NEUTROPHIL % (test code = NT%) 71.3 % 57.9-77.3 N LYMPHOCYTE % (test code = LY%) 22.4 % 14.5-29.7 N MONOCYTE % (test code = MO%) 5.0 % 3.6-10.2 N EOSINOPHIL % (test code = EO%) 0.7 % 0.0-3.0 N BASOPHIL % (test code = BA%) 0.4 % 0.1-0.9 N NEUTROPHIL # (test code = NT#) 8.0 K/mm3 LYMPHOCYTE # (test code = LY#) 2.5 K/mm3 MONOCYTE # (test code = MO#) 0.6 K/mm3 EOSINOPHIL # (test code = EO#) 0.08 K/mm3 BASOPHIL # (test code = BA#) 0.1 K/mm3 RBC MORPHOLOGY REQUIRED (test code NORMAL NORMAL = RBCM) PLATELET MORPHOLOGY REQUIRED (test NORMAL NORMAL code = PLTMR) HCG [id number] 15:48:00 Test Item Value Reference Range Interpretation Comments HCG SERUM (test 41214 INTERPRETATI ON:VALUES BETWEEN code = HCG) 15-20 milliInte rnational units/mL NEED T O BERETESTED WITHIN 48 HOURS . All units for these ranges ar e in milliInternatio nalunits/mL0-1 WK AFTER CONCEP TION 0-50 1-2 WKS AFTER LATISHA PTION 40-3002-3 WKS AFTER LATISHA PTION 100-1,0003-4 WK S AFTER CONCEPTION 500- 6,0001-2 MONTHS AFTER CONCEPTIO N 5,000-200,0002- 3 MONTHS AFTER CONCEPTION 10,0 00-100,0002ND TRIMESTER 3,000 -50,0003RD TRIMESTER 1,000 -50,000 SPECIMENS WITH AN HCG LEVEL FROM 0-6 milliInternatio nalunits/mL SHOULD BE CONSI DERED NEGATIVE COMPREHENSIVE METABOLIC [id number] 14:54:00 Test Item Value Reference Range Interpretation Comments SODIUM (test code = NA) 136 mEq/L 135-145 N POTASSIUM (test code = K) 3.9 mEq/L 3.5-5.0 N CHLORIDE (test code = CL) 100 mEq/L 100-115 N CARBON DIOXIDE (test code = CO2) 26 mEq/L 22-31 N ANION GAP (test code = GAP) 14.00 10-20 N GLUCOSE (test code = GLU) 97 mg/dL 65-110 N BLOOD UREA NITROGEN (test code = 11 mg/dL 7-18 N BUN) GLOMERULAR FILTRATION RATE (test 87 ml/min >60 N code = GFR) CREATININE (test code = CREAT) 0.8 mg/dL 0.5-1.0 N TOTAL PROTEIN (test code = PROT) 7.5 gm/dL 6.3-8.2 N ALBUMIN (test code = ALB) 3.8 gm/dL 3.4-4.8 N CALCIUM (test code = CA) 8.7 mg/dL 8.4-10.2 N BILIRUBIN TOTAL (test code = BILT) 0.3 mg/dL 0.2-1.0 N SGOT/AST (test code = AST) 23 units/L 15-37 N SGPT/ALT (test code = ALT) 28 units/L 12-78 N ALKALINE PHOSPHATASE TOTAL (test 67 units/L 46-116 N code = ALKP) UA RFLX MICR CULT IF [id number] 14:36:00 Test Item Value Reference Range Interpretation Comments UA COLOR (test code = YELLOW YELLOW COLU) UA APPEARANCE (test CLOUDY CLEAR A code = APPU) UA GLUCOSE DIPSTICK NEGATIVE NEGATIVE (test code = DGLUU) UA BILIRUBIN DIPSTICK NEGATIVE NEGATIVE (test code = BILU) UA KETONE DIPSTICK NEGATIVE NEGATIVE (test code = KETU) UA SPECIFIC GRAVITY 1.020 1.001-1.035 N (test code = SGU) UA BLOOD DIPSTICK 3+ NEGATIVE A (test code = MOISES) UA PH DIPSTICK (test 6.5 5-9 code = ISHMAEL) UA PROTEIN DIPSTICK NEGATIVE NEGATIVE (test code = PROU) UA UROBILINIOGEN 0.2 EU/dL See_Comment [Automated DIPSTICK (test code = messag e] The URO) system which generated this result transmit emily reference range : <=1.0. The reference range was not used to interpret this result as normal/abnormal . UA NITRITE DIPSTICK NEGATIVE NEGATIVE (test code = JAGDEEP) UA LEUKOCYTE ESTERASE 2+ NEGATIVE A DIPSTICK (test code = LEUU) UA WBC (test code = 11-15 #/hpf NONE SEEN A WBCU) UA EPITHELIAL CELLS MODERATE #/HPF RARE-FEW A (test code = EPIU) UA RBC (test code = 3-5 #/hpf NONE SEEN A RBCU) UA BACTERIA (test RARE #/hpf NONE SEEN code = BACU) Indication for culture: RiskForSepsis-no oth srcSpecimen Description: CLEAN CATCHCBC W/AUTO [id number] 14:07:00 Test Item Value Reference Range Interpretation Comments WHITE BLOOD CELL (test code = WBC) 10.9 K/mm3 6.5-12.3 N RED BLOOD CELL (test code = RBC) 4.66 M/mm3 3.51-4.69 N HEMOGLOBIN (test code = HGB) 13.5 g/dL 10.1-13.8 N HEMATOCRIT (test code = HCT) 40.0 % 32.5-41.8 N MEAN CELL VOLUME (test code = MCV) 85.8 fL 84.6-96.6 N MEAN CELL HGB (test code = MCH) 29.0 pg 27.3-33.9 N MEAN CELL HGB CONCETRATION (test 33.8 gm/dL 32.0-34.2 N code = MCHC) RED CELL DISTRIBUTION WIDTH (test 12.6 % 12.2-16.3 N code = RDW) PLATELET COUNT (test code = PLT) 311 K/mm3 134-363 N MEAN PLATELET VOLUME (test code = 9.6 fL 9.2-12.7 N MPV) NEUTROPHIL % (test code = NT%) 71.1 % 57.9-77.3 N LYMPHOCYTE % (test code = LY%) 23.4 % 14.5-29.7 N MONOCYTE % (test code = MO%) 4.5 % 3.6-10.2 N EOSINOPHIL % (test code = EO%) 0.4 % 0.0-3.0 N BASOPHIL % (test code = BA%) 0.3 % 0.1-0.9 N NEUTROPHIL # (test code = NT#) 7.8 K/mm3 LYMPHOCYTE # (test code = LY#) 2.6 K/mm3 MONOCYTE # (test code = MO#) 0.5 K/mm3 EOSINOPHIL # (test code = EO#) 0.04 K/mm3 BASOPHIL # (test code = BA#) 0.0 K/mm3 RBC MORPHOLOGY REQUIRED (test code NORMAL NORMAL = RBCM) PLATELET MORPHOLOGY REQUIRED (test NORMAL NORMAL code = PLTMR) - DUP AB/PEL/[id number] 00:00:00 [facility] 1995 Sex: F Patient Name: TRANG SHIELDS Unit No: [id number] EXAMS: CPT CODE: [id number] DUP AB/PEL/SC/LTD 82665 PROCEDURE INFORMATION: Exam: US First Trimester (Transabdominal), (Transvaginal), and US Duplex Artery or Vein (Ovaries) Limited Exam date and time: 04/15/2022 2:17 PM Age: 26 years old Clinical indication: Abdominal or pelvic symptoms: Blood flow to ovaries; Lmp or gestational age (in weeks): 6 weeks 1 day; Antepartum complications; Other: Dizziness, SOB, irregular heartrate; ; Additional info: Vb; () LABS AND CLINICAL REPORTS: Last menstrual period start date: 02/19/2022 Estimated due date (Established): 11/26/2022 TECHNIQUE: Imaging protocol: Real-time transabdominal and transvaginal obstetrical ultrasound of the maternal pelvis and a first trimester , less than 14 weeks 0 days, with image documentation. Transvaginal imaging was used for better evaluation of the endometrium, adnexa, and/or cervix. Real-time duplex ultrasound scan of the arterial or venous flow of the ovaries with B-mode, color Doppler flow and spectral waveform analysis. Completeobstetrical exam, limited duplex. COMPARISON: No relevant prior studies available. FINDINGS: Gestation: Intrauterine gestation. Yolk sac is visualized. Embryonic/ heart rate: 125 bpm Extra-embryonic membranes/Placenta: Subchorionic hemorrhage measures 1.8 x 1.0 x 1.5 cm on the right. Amniotic flui d: Amniotic fluid and extra-amniotic fluid are unremarkable for gestational age. BIOMETRY: Gestational age (AUA): 6 w 1 d Estimated due date (AUA): 12/08/2022 Mean sac diameter: 1.7 cm. EGA (MSD) is 6 w4 d Spade-Rump length: 4.3 mm. EGA (CRL) is 6 w 1 d MATERNAL: Uterus: Uterus measures 8.7 cm x 6.4 cm x 4.8 cm. Cervix: Unremarkable. Right ovary/adnexa: Measures 4.2 x 2.6 x 3.2 cm with Doppler flow. Corpus luteum. Left ovary/adnexa: Measures 2.7 x 2.1 x 2.0 cm with Doppler flow. Intraperitoneal space: No intraperitoneal free fluid. IMPRESSION: Live intrauterine with gestational age 6 weeks 1 day. [facility] NAME: TRANG SHIELDSDARON Radiology Department PHYS: Mallika Young [address] : 1995 AGE: 26 SEX: F [place], [place] [address] LOC: FREDI PHONE #: [phone] EXAM DATE: 04/15/2022 STATUS: PHILIP IEVRSON FAX #: [phone] RAD NO: Page 1 Signed Report (CONTINUED) Patient Name: TRANG SHIELDS Unit No: [id number] EXA MS: CPT CODE: [id number] DUP AB/PEL/SC/LTD 11627 (Continued) at 1514 Reported and signed by: Les Roe MD CC: Mallika Logan MD;Jonathan Kapoor MD Technologist: Keira Foss RDMS Probe: Trnscrbd D/ (1514) GCD.CPS Orig Print D/T: S: 04/15/2022 (1515) [facility] PHYS: PETGAMALIEL. - Mallika Logan [address] : 1995 AGE: 26 SEX: [place] [address] LOC: JustineERS PHONE #: [phone] EXAM DATE: 04/15/2022 STATUS: REG ER FAX #: [phone] RAD NO: Page 2 Signed Report Patient Name: TRANG SHIELDS Unit No: [id number] EXAMS: CPT CODE: [id number] DUP AB/PEL/SC/LTD 15718 (Continued) [facility] NAME: TRANG SHIELDS Radiology Department PHYS: JESSICA.Lilli - Mallika Logan [address] : 1995 AGE: 26 SEX: Eduardo [place], [place] [address] LOC: Eduardo.ERS PHONE #: [phone] EXAM DATE: 04/15/2022 STATUS: REG ER FAX #: [phone] RAD NO: Page 3 Signed Report- US PREG UT [id number] 00:00:00 [facility] 1995 Sex: F Patient Name: TRANG SHIELDS Unit No: [id number] EXAMS: CPT CODE: [id number] US PREG UT TRANSVAGINAL 08764 PROCEDURE INFORMATION: Exam: US First Trimester (Transabdominal), (Transvaginal), and US Duplex Artery or Vein (Ovaries) Limited Exam date and time: 04/15/2022 2:17 PM Age: 26 years old Clinical indication: Abdominal or pelvic symptoms: Blood flow to ovaries; Lmp or gestational age (in weeks): 6 weeks 1 day; Antepartum complications; Other: Dizziness, SOB, irregularheartrate; ; Additional info: Vb; () LABS AND CLINICAL REPORTS: Last menstrual period start date: 02/19/2022 Estimated due date (Established): 11/26/2022 TECHNIQUE: Imaging protocol: Real-time transabdominal and transvaginal obstetrical ultrasound of the maternal pelvis and a first trimester , less than 14 weeks 0 days, with image documentation. Transvaginal imaging was used for better evaluation of the endometrium, adnexa, and/or cervix. Real-time duplex ultrasound scan of the arterial or venous flow of the ovaries with B-mode, color Doppler flow and spectral waveform analysis. Complete obstetrical exam, limited duplex. COMPARISON: No relevant prior studies available. FINDINGS: Gestation: Intrauterine gestation. Yolk sac is visualized. Embryonic/ heart rate: 125 bpm Extra-embryonic membranes/Placenta: Subchorionic hemorrhage measures 1.8 x 1.0 x 1.5 cm on the right. Amniotic fluid: Amniotic fluid and extra-amniotic fluid are unremarkable for gestational age. BIOMETRY: Gestational age (AUA): 6 w 1 d Estimated due date (AUA): 12/08/2022 Mean sac diameter: 1.7 cm. EGA (MSD) is 6 w 4 d Spade-Rump length: 4.3 mm. EGA (CRL) is 6 w 1 d MATERNAL: Uterus: Uterus measures 8.7 cm x6.4 cm x 4.8 cm. Cervix: Unremarkable. Right ovary/adnexa: Measures 4.2 x 2.6 x 3.2 cm with Doppler flow. Corpus luteum. Left ovary/adnexa: Measures 2.7 x 2.1 x 2.0 cm with Doppler flow. Intraperitoneal space: No intraperitoneal free fluid. IMPRESSION: Live intrauterine with gestational age 6 weeks 1 day. [facility] NAME: TRANG SHIELDS Radiology Department PHYS: PETGAMALIEL. YuriyMallika eckert [address] : 1995 AGE: 26 SEX: F [place] [address] LOC: JustineERS PHONE #: [phone] EXAM DATE: 04/15/2022 STATUS: REG ER FAX #: [phone] RAD NO: Page 1 Signed Report (CONTINUED) Patient Name: TRANG SHIELDS Unit No: [id number] EXAMS: CPT CODE: [id number] US PREG UT TRANSVAGINAL 01871 (Continued) at 1514 Reported and signed by: Les Roe MD CC: Mallika Carrasco MD; Jonathan Kapoor MD Technologist: Keira Foss RDMS Probe: [id number] Trnscrbd D/ (1514) GCD.CPS Orig Print D/T: S: 04/15/2022 (1515) [facility] NAME: TRANG SHIELDS Radiology Department PHYS: PETCA. - YuriyMallika eckert [address] : 1995 AGE: 26 SEX: F [place], [place] [address] LOC: JustineERS PHONE #: [phone] EXAM DATE: 04/15/2022 STATUS: REG ER FAX #: [phone] RAD NO: Page 2 Signed Report Patient Name: TRANG SHIELDS Unit No: [id number] EXAMS: CPT CODE: [id number] US PREG UT TRANSVAGINAL 04369 (Continued) [facility] NAME: TRANG SHIELDS Radiology Department PHYS: PETCA. - Mallika Logan [address] : 1995 AGE: 26 SEX: F [place] [address] LOC: FREDI PHONE #: [phone] EXAM DATE: 04/15/2022 STATUS: REG ER FAX #: [phone] RAD NO: Page 3 Signed Report- XR CHEST 1 [id number] 00:00:00 [facility] 1995 Sex: F Patient Name: TRANG SHIELDS Unit No: [id number] EXAMS: CPT CODE: [id number] XR CHEST 1 V 08672 PROCEDURE INFORMATION: Exam: XR Chest Exam date and time: 04/15/2022 2:56 PM Age: 26 years old Clinical indication: Shortness of breath; Additional info: Vb TECHNIQUE: Imaging protocol: Radiologicexam of the chest. Views: 1 view. COMPARISON: No relevant prior studies available. FINDINGS: Lungs: Normal lung volumes. No consolidation. Pleural spaces: Unremarkable. No pleural effusion. No pneumothorax. Heart/Mediastinum: Heart size is within normal limits. Vasculature is unremarkable. Bones/joints: Unremarkable. IMPRESSION: No acute cardiopulmonary findings. at 1511 Reported and signed by: Corey Abbott MD CC: Mallika Logan MD; Jonathan Kapoor MD Technologist: Shefali Trujillo RT Trnscrbd D/ (1511) GCD.CPS Orig Print D/T: S: 04/15/2022 (1511) [facility] NAME: TRANG SHIELDS Radiology Department PHYS: JESSICAKietTommie Bullardace Agustín [address] : 1995 AGE: 26 SEX:F [place] [address] LOC: FREDI PHONE #: [phone] EXAM DATE: 04/15/2022 STATUS: REG ER FAX #: [phone] RAD NO: Page 1 Signed Report - US PREG EVAL 1ST [id number] 00:00:00 [facility] 1995 Sex: F Patient Name: TRANG SHIELDS Unit No: [id number] EXAMS: CPT CODE: [id number] US PREG [id number] TRIMTR 69593 PROCEDURE INFORMATION: Exam: US First Trimester (Transabdominal), (Transvaginal), and US Duplex Artery or Vein (Ovaries) Limited Exam date and time: 04/15/2022 2:17 PM Age: 26 years old Clinical indication: Abdominal or pelvic symptoms: Blood flow to ovaries; Lmp or gestational age (in weeks): 6 weeks 1 day; Antepartum complications; Other: Dizziness, SOB, irregular heartrate; ; Additional info: Vb; () LABS AND CLINICAL REPORTS: Last menstrual period startdate: 02/19/2022 Estimated due date (Established): 11/26/2022 TECHNIQUE: Imaging protocol: Real-time transabdominal and transvaginal obstetrical ultrasound of the maternal pelvis and a first trimester , less than 14 weeks 0 days, with image documentation. Transvaginal imaging was used for better evaluation of the endometrium, adnexa, and/or cervix. Real-time duplex ultrasound scan of the arterial or venous flow of the ovaries with B-mode, color Doppler flow and spectral waveform analysis. Complete obstetrical exam, limited duplex. COMPARISON: No relevant prior studies available. FINDINGS: Gestation: Intrauterine gestation. Yolk sac is visualized. Embryonic/ heart rate: 125 bpm Extra-embryonic membranes/Placenta: Subchorionic hemorrhage measures 1.8 x 1.0 x 1.5 cm on the right. Amniotic fluid: Amniotic fluid and extra-amniotic fluid are unremarkable for gestational age. BIOMETRY: Gestational age (AUA): 6 w 1 d Estimated due date (AUA): 12/08/2022 Mean sac diameter: 1.7 cm. EGA (MSD) is 6 w 4 d Spade-Rump length: 4.3 mm. EGA (CRL) is 6 w 1 d MATERNAL: Uterus: Uterus measures 8.7 cm x 6.4 cm x 4.8 cm. Cervix: Unremarkable. Right ovary/adnexa: Measures 4.2 x 2.6 x 3.2 cm with Doppler flow. Corpus luteum. Left ovary/adnexa: Measures 2.7 x 2.1 x 2.0 cm with Doppler flow. Intraperitonealspace: No intraperitoneal free fluid. IMPRESSION: Live intrauterine with gestational age 6weeks 1 day. [facility] NAME: TRANG SHIELDS Radiology Department PHYS: P [email or web address] - Mallika Logan [address] : 1995 AGE: 26 SEX: F [place], [place] [address] LOC: FREDI PHONE #: [phone] EXAM DATE: 04/15/2022 STATUS: REG ER FAX #: [phone] RAD NO: Page 1 Signed Report (CONTINUED) Patient Name: TRANG SHIELDS Unit No: [id number] EXAMS: CPT CODE: [id number] US PREG EVAL 1ST TRIMTR 99363 (Continued) at 1514 Reported and signed by: Les Roe MD CC: Mallika Logan MD; Jonathan Kapoor MD Technologist: Keira Foss RDMS Probe: Trnscrbd D/ (1514) GCD.CPS Orig Print D/T: S: 04/15/2022 (1515) [facility] NAME: TRANG SHIELDS Radiology Department PHYS: PETCA. - Mallika Logan [address] : 1995 AGE: 26 SEX: F [place] [address] LOC: JustineERS PHONE #: [phone] EXAM DATE: 04/15/2022 STATUS: REG ER FAX #: [phone] RAD NO: Page 2 Signed Report Patient Name: TRANG SHIELDS Unit No: [id number] EXAMS: CPT CODE: [id number] US PREG EVAL 1ST TRIMTR 97544 (Continued) [facility] NAME: TRANG SHIELDS Radiology Department PHYS: PETCA. - Mallika Logan [address] : 1995 AGE: 26 SEX: F [place] [address] LOC: JustineERS PHONE #: [phone] EXAM DATE: 04/15/2022 STATUS: REG ER FAX #: [phone] RAD NO: Page 3 Signed ReportCBC W/AUTO [id number] 07:20:00 Test Item Value Reference Range Interpretation Comments WHITE BLOOD CELL (test code = WBC) 18.2 K/mm3 6.5-12.3 H RED BLOOD CELL (test code = RBC) 3.06 M/mm3 3.51-4.69 L HEMOGLOBIN (test code = HGB) 9.6 g/dL 10.1-13.8 L HEMATOCRIT (test code = HCT) 28.1 % 32.5-41.8 L MEAN CELL VOLUME (test code = MCV) 91.8 fL 84.6-96.6 N MEAN CELL HGB (test code = MCH) 31.4 pg 27.3-33.9 N MEAN CELL HGB CONCETRATION (test 34.2 gm/dL 32.0-34.2 N code = MCHC) RED CELL DISTRIBUTION WIDTH (test 13.0 % 12.2-16.3 N code = RDW) PLATELET COUNT (test code = PLT) 178 K/mm3 134-363 N MEAN PLATELET VOLUME (test code = 10.2 fL 9.2-12.7 N MPV) NEUTROPHIL % (test code = NT%) 81.9 % 57.9-77.3 H LYMPHOCYTE % (test code = LY%) 11.8 % 14.5-29.7 L MONOCYTE % (test code = MO%) 5.4 % 3.6-10.2 N EOSINOPHIL % (test code = EO%) 0.1 % 0.0-3.0 N BASOPHIL % (test code = BA%) 0.2 % 0.1-0.9 N NEUTROPHIL # (test code = NT#) 14.9 K/mm3 LYMPHOCYTE # (test code = LY#) 2.2 K/mm3 MONOCYTE # (test code = MO#) 1.0 K/mm3 EOSINOPHIL # (test code = EO#) 0.02 K/mm3 BASOPHIL # (test code = BA#) 0.0 K/mm3 RBC MORPHOLOGY REQUIRED (test code NORMAL NORMAL = RBCM) PLATELET MORPHOLOGY REQUIRED (test NORMAL NORMAL code = PLTMR) AG HEPATITIS B [id number] 22:05:00 Test Item Value Reference Range Interpretation Comments AG HEPATITIS B SURFACE (test code NONREACTIVE NONREACTIVE = HBSAG) AB HEPATITIS C [id number] 22:05:00 Test Item Value Reference Range Interpretation Comments AB HEPATITIS C (test code = NONREACTIVE NONREACTIVE HCVAB) SIGNAL TO CUTOFF (test code = <0.02 <0.80 N CUTOFF) AB [id number] 22:05:00 Test Item Value Reference Range Interpretation Comments AB TREPONEMA (test code = TREPAB) NONREACTIVE NONREACTIVE AB HIV 1 22:05:00 Test Item Value Reference Range Interpretation Comments AB HIV 1 2 (test NONREACTIVE NONREACTIVE Done by [facility] code = [id number]) 4th Gen HIV Ag/Ab Combo Screen COVID 19 Asymptomatic IH [id number] 21:38:00 Test Item Value Reference Range Interpretation Comments COVID 19 NEGATIVE NEGATIVE This test has b een Asymptomatic IH AG authorize d only for the (test code = detection ofpro teins from COVNONPUIAG) SARS-CoV-2, not for any other viruses orpathogens. Ne gative results should be treated as presumptive andconfirmed wi th a molecular assay , if necessary for patientmanageme nt. Negative result s do not rule out COVID- 19 andshould not b e used as the sole basis for treatment orpat ient management deci sions, including infec tion controldecision s. Negative result s should be considered i n thecontext of a patient's recent exposure s, history and thepresence of clinical signs and symptoms consis tent withCOVID-19. T his test has not been FD A cleared or approved; th e test hasbeen authori torsten by [facility] under an Emerge ncy Use Authorization(E UA) for use by laborato jani certified under the CLIA thatmeet the re quirements to perform mode rate, high or waivedcomple xity tests. This rudy t is authorized for use at thePoint of Car e (POC), i.e., in patien t care settingsoperati ng under a CLIA Certificat e of Waiver, Certifi angie ofCompliance, o r Certificate of Accreditation. This test is only authori torsten for the duration of thedeclaration that circumstances e xist justifying theauthorizatio n of emergency use o f in vitro diagnostic test sfor detection and/o r diagnosis of CO VID-19 under Rqtdrlw08 4(b)(1) of the Act, 21 U.S .C. 360bbb-3(b)(1), unless theauthorizatio n is terminated or r evoked sooner. CBC W/AUTO [id number] 21:17:00 Test Item Value Reference Range Interpretation Comments WHITE BLOOD CELL (test code = WBC) 13.4 K/mm3 6.5-12.3 H RED BLOOD CELL (test code = RBC) 4.03 M/mm3 3.51-4.69 N HEMOGLOBIN (test code = HGB) 12.5 g/dL 10.1-13.8 N HEMATOCRIT (test code = HCT) 36.6 % 32.5-41.8 N MEAN CELL VOLUME (test code = MCV) 90.8 fL 84.6-96.6 N MEAN CELL HGB (test code = MCH) 31.0 pg 27.3-33.9 N MEAN CELL HGB CONCETRATION (test 34.2 gm/dL 32.0-34.2 N code = MCHC) RED CELL DISTRIBUTION WIDTH (test 13.1 % 12.2-16.3 N code = RDW) PLATELET COUNT (test code = PLT) 254 K/mm3 134-363 N MEAN PLATELET VOLUME (test code = 10.3 fL 9.2-12.7 N MPV) NEUTROPHIL % (test code = NT%) 76.7 % 57.9-77.3 N LYMPHOCYTE % (test code = LY%) 17.5 % 14.5-29.7 N MONOCYTE % (test code = MO%) 4.9 % 3.6-10.2 N EOSINOPHIL % (test code = EO%) 0.4 % 0.0-3.0 N BASOPHIL % (test code = BA%) 0.1 % 0.1-0.9 N NEUTROPHIL # (test code = NT#) 10.3 K/mm3 LYMPHOCYTE # (test code = LY#) 2.4 K/mm3 MONOCYTE # (test code = MO#) 0.7 K/mm3 EOSINOPHIL # (test code = EO#) 0.05 K/mm3 BASOPHIL # (test code = BA#) 0.0 K/mm3 RBC MORPHOLOGY REQUIRED (test code NORMAL NORMAL = RBCM) PLATELET MORPHOLOGY REQUIRED (test NORMAL NORMAL code = PLTMR) - MRI LW JNT W/O CONT [id number] 15:59:00 Patient Name: TRANG CORREA Unit No: [id number] Report Has Been Amended EXAMS: CPT CODE: [id number] [place] LW JNT W/[place] [address] Addendum - 11/10/2019 SIGNED 11/10/2019 ADDENDUM: [id number] MRI/[id number] Upon further review, a 4 mm [...] gastrocnemius origin, possibly secondary to strain. at 1430 Reported and signed by: Hammad Natarajan M.D. CC: Eh Galvez MD Technologist: JUAN DAVID GONZALEZ Transcribed D/ (8090) [facility]: TRANG CORRAE [address] [place] [address] PHYS: Eh Argueta : 1995 AGE: 24 SEX: F [place], [place] [address] LOC: Y.MRI PHONE #: [phone] EXAM DATE: 11/10/2019 STATUS: REG CLI FAX #: [phone] RAD #: D/C DT PAGE 1 Signed Report Patient Name: TRANG CORREA Unit No: [id number] Report Has Been Amended EXAMS: CPT CODE: [id number] MRI LW JNT W/[place] [address] (Camron nued) Orig Print D/T: S: 11/10/2019 (2716) [facility] NAME: TRANG CORREA [address] [facility] PHYS: Eh Argueta : 1995 AGE: 24 SEX: F [place], [place] [address] LOC: Y.MRI PHONE #: [phone] EXAM DATE: 11/10/2019 STATUS: REG CLI FAX #:[phone] RAD #: D/C DT PAGE 2 Signed Report- MRI LW JNT W/O CONT [id number] 14:39:00 Patient Name: TRANG CORREA Unit No: [id number] EXAMS: CPT CODE: [id number] MRI LW JNT W/[place] [address] TECHNIQUE: Multiplanar, multisequence MRI of the left [...] extensor mechanism is unremarkable. Cartilage/ bone: No full- thickness chondral defect. No acute fracture. No suspicious osseous lesion. Other: No significant joint effusion. Soft tissue edema is centered about the medial gastrocnemius origin, which could represent a sprain. IMPRESSION: 1. Suspected vertical longitudinal tear of the medial meniscalbody. 2. Soft tissue edema about the medial gastrocnemius origin, possibly secondary to strain. El ectronically Signed by Ehsan Natarajan on 11/10/2019 at 1439 Reported and signed by: Hammad Natarajan M.D. CC: Eh Galvez MD Technologist: JUAN DAVID GONZALEZ MRI Transcribed D/ (1439) [facility] TR[facility] [address] [facility] PHYS: Eh Argueta : 1995 AGE: 24 SEX: F [place], [place] [address] LOC: Y.MRI PHONE #: [phone] EXAM DATE: 11/10/2019 STATUS: REG CLI FAX #: [phone] RAD #: D/C DT PAGE 1 Signed Report Patient Name: TRANG CORREA Unit No: [id number] EXAMS: CPT CO DE: [id number] [place] LW JNT W/[place] [address] (Continued) Orig Print D/T: S: 11/10/2019 (1443) [facility] NAME: TRANG CORREA [address] PHYS: Eh Argueta : 1995 AGE: 24 SEX: F [place], [place] [address] LOC: Y.MRI PHONE #: [phone] EXAM DATE: 11/10/2019 STATUS: REG CLI FAX #: [phone] RAD #: D/C DT PAGE 2 Signed Report Notes Date/Time Note Provider Source 2022-05-19 08:36:00-00:00 [facility] ([facility]) Full Op Note REPORT#:[id number] REPORT STATUS: Signed DATE:05/19/22 TIME: 08 PATIENT: TRANG SHIELDS UNIT #: [id number] ROOM/BED: : 95 AGE: 26 SEX: F ATTEND: Yoko Larsen MD ADM AUTHOR: Gena Larsen MD * ALL edits or amendments must be made on the [employer]/computer document * Operative Report ORM Surgeries: Surgery Date and Time: 05/19/2022 0800 Proposed Primary Procedure: CERVICAL DILATION U TERINE CURETTAGE 9 Start date: 05/19/22 Start time: 0800 Pre-procedure diagnosis: Missed at 9 weeks Post-procedure diagnosis: Missed at 9 weeks Procedures performed: Suction dilation and curettage Technique/Procedure: Patient was taken to the operating room where ge neral anesthesia was induced. She was placed in the dorsal lithotomy p osition in the [facility]. She was prepped and draped in the us ua sterile fashion. A time out was then performed. The bladder was drained with a red rubber cathet er. A weighted speculum was placed into the posterior va ginal vault. A tenaculum was placed on the anterior cervical lip. The cervix was serially dilated t o facilitate entry of the 9 curved suction curette. This was introdu cinthia to the uterine fundus, and suction was applied in standard [facility] ion to empty the uterine cavity. Trailing membranes were noted and removed with tissue foceps. A total of two passes were made with the suction curette. A sharp curette was then introduced into the cavity, and a gritty texture was noted throughout. All instrum ents were then removed. Hemostasis was noted. The uterine fundus was fir m with massage. The procedure was then completed. The patient was taken out of the lithotomy posit ion and awakened from general anesthesia. She was transported to the recovery room in stable condition. All counts were correct. Primary Surgeon: MD Chava Stripper Preliminary(s): none Anesthesia: general anesthesia Operative findings: Anteverted uterus approximately 10 weeks sized w ith moderate products of conception. Tissue sent to Pathology and for gen etic testing as per patient request. Complications: none Estimated blood loss in ml's: 250 mL Specimens removed/altered: products of conceptio n Implant(s): none Fluids: 300 mL Urine output: 100 mL Disposition: plan to D/C home, PACU Counts: Sponge count: correct Instrument count: correct Needle count: correct Electronically Signed by Gena Larsen MD o n 05/19/22 at 0842 RPT #:[id number] END OF REPORT 2022-05-19 06:20:00-00:00 [facility]) History Physical - Adult REPORT#:[id number] REPORT STATUS: Signed DATE:05/19/22 TIME: 06 PATIENT: TRANG SHIELDS UNIT #: [id number] ROOM/BED: : 95 AGE: 26 SEX: F ATTEND: Yoko Larsen MD ADM AUTHOR: Gena Larsen MD * ALL edits or amendments must be made on the el [employer]/computer document * History of Present Illness HPI Chief complaint: missed PCP: PCP: Gena Larsen MD HPI: Pt is a 26 yo with missed at 9 weeks. Her has been uncomplicated. She initiated care with Dr. Kapoor and had a normal dating ultrasound at 7 weeks . Upon follow up visit with us, no FHTs were found, and was noted to have stopped progress ing at 9w3d. She has had mild spotting but no pain or heavy bleeding. She was counseled on her options for treatment and desires to proceed with surgery. History Additional medical history: anxiety, migraines, anemia Additional surgical history: tonsillectomy Additional family history: noncontributory Alcohol use: Denies EtOH use Drug use: Denies recreational drugs Smoking status for patients 13 years old or olde r: Former Smoker Medication/Allergy-Vaccine Hx Medications: Home Medications: Medication Dose/Rte/Freq Days Qty Entered Last Max Daily Dose Reviewed ESCITALOPRAM (LEXAPRO) 15 MG 05/18/22 Strength: 10 MG TAB 1619 Current Hospital Medications: Anti-Infective Agents Sig/Vernon Start time Last Medication Dose Route Stop Time Status Admin Doxycycline Hyclate 200 MG PREOP 05/21 0500 DC (DOXYCYCLINE HYCLATE IV 05/21 1800 100 MG VIAL) Sodium Chloride 250 ML (SODIUM CHLORIDE 0.9% - 250 ML) Doxycycline Hyclate 200 MG PREOP 05/19 0615 CK D (DOXYCYCLINE HYCLATE IV 07/18 0610 100 MG VIAL) Sodium Chloride 250 ML (SODIUM CHLORIDE 0.9% - 250 ML) Central Nervous System Agents Sig/Vernon Start time Last Medication Dose Route Stop Time Status Admin Acetaminophen 1,000 MG PREOP 05/21 0500 DC (TYLENOL EXTRA PO 05/21 1800 STRENGTH) Gabapentin 400 MG PREOP 05/21 0500 DC (NEURONTIN 400MG CAP) PO 05/21 1800 Acetaminophen 1,000 MG PREOP 05/19 0615 CKD (TYLENOL EXTRA PO 07/18 0610 STRENGTH) Gabapentin 400 MG PREOP 05/19 0615 CKD (NEURONTIN 400MG CAP) PO 07/18 0609 Allergies: Coded Allergies: adhesive (RASH/RAW SKIN 05/18/22) ceftriaxone (From ROCEPHIN) (ANAPHYLACTIC ) trazodone (SINUS SWELLING 05/18/22) Review of Systems All systems rev neg: except as marked Physical Exam VS/I O 24 hour I O ending at 0700: 05/19 0700 05/18 1900 Intake Total Output Total Balance Patient 180 lb Weight Weight Standing scale Measurement Method PATIENT WEIGHT: Weight (lb): 180 Weight (oz): 5.41 Weight (kg): 81.800 General appearance: alert, awake, oriented, no a cute distress, pleasant, conversational, mental status normal, no respira tory distress Head/Eyes: atraumatic, clear cornea, EOMI, normo cephalic ENT: moist mucosal membranes Respiratory: aerating well Abdomen/GI: soft, non-tender, no guarding, no re bound, no distention Genitourinary: deferred Extremities: moves all Musculoskeletal: full range of motion, normal in spection Neuro/[employer] B[employer] ATTENDANT: alert, oriented X 3, NL cerebellar function, normal speech, no motor deficits Psychiatry: normal affect, normal judgment/insig ht, normal mood Results Findings/Data: Laboratory Tests: 05/18 1446 Hematology WBC (6.5 - 12.3 K/mm3) 11.2 RBC (3.51 - 4.69 M/mm3) 4.37 Hgb (10.1 - 13.8 g/dL) 13.0 Hct (32.5 - 41.8 %) 37.8 MCV (84.6 - 96.6 fL) 86.5 MCH (27.3 - 33.9 pg) 29.7 MCHC (32.0 - 34.2 gm/dL) 34.4 H RDW (12.2 - 16.3 %) 12.4 Plt Count (134 - 363 K/mm3) 314 MPV (9.2 - 12.7 fL) 9.6 Neut % (Auto) (57.9 - 77.3 %) 71.3 Lymph % (Auto) (14.5 - 29.7 %) 22.4 [place] % (Auto) (3.6 - 10.2 %) 5.0 Eos % (Auto) (0.0 - 3.0 %) 0.7 Baso % (Auto) (0.1 - 0.9 %) 0.4 Neut # (Auto) (K/mm3) 8.0 Lymph # (Auto) (K/mm3) 2.5 [place] # (Auto) (K/mm3) 0.6 Eos # (Auto) (K/mm3) 0.08 Baso # (Auto) (K/mm3) 0.1 Diagnosis, Assessment Plan Free Text DxA P Notes Free Text DxA P Notes: Pt is a 26 yo with missed at 9 weeks - Pt counseled on the risks and benefits of robert tment options and desires to proceed with surgical evacuation. All questions answered. 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 Rate : 086 BPM Atrial Rate : 086 BPM P-R Int : 116 ms QRS Dur : 090 ms QT Int : 366 ms P-R-T Axes : 059 072 047 degree s QTc Int : 437 ms Normal sinus rhythm Nonspecific ST and T wave abnormality Abnormal ECG No previous ECGs available Confirmed by DEEJAY CRUZ ([id number]) on 04/18/20 12:59:39 PM Referred By: Self Referred Confirmed by:SEBLE CRUZ at 1259 PATIENT NAME: TRANG SHIELDS 2022-04-15 13:22:00-00:00 [facility] ([facility]) emergency provider report report#:[id number] report status: signed date:04/15/22 time: 1322 patient: trang shields unit #: [id number] room/bed: age: 26 sex: f pcp phys: jonathan kapoor md service dt: 04/15/22 author: mallika logan md * all edits or amendments must be made on the el [employer]/computer document * hpi-syncope free text hpi notes free text hpi notes cc: syncope x3 history: lmp: 02/19/22 elise: - ga: 7w6d pmh: migraine headaches, anemia symptoms: headache (yesterday; now resol david), nausea without vomiting, syncope x3, shortness of breath, dizziness pain scale: *0 out of 10 on pain scale exacerbating factors: standing/sitting alleviating factors: none meds taken: iron pills, dramamine covid sx: none vaccination status: not applicable obgyn: emelia general initial greet date/time 04/15/22 1320 presentation chief complaint lost consciousness )( onset occurred yesterday risk-syncope risk stratification )( coronary artery disease risk factors reviewed , no risk factors )( thoracic aortic dissection risk factors revie wed, )( pulmonary embolism risk factors reviewed, pre gnancy review of systems ros statements all systems rev neg except as marked. free text ros notes free text ros notes focused review of systems constitutional denies: chills, fever, lethargy. gi denies: abdominal pain, diarrhea, nausea, vomiti ng. gu female reports: , no vaginal bleeding musculoskeletal denies: back pain, extremity pain. endocrine denies: polyuria, weight loss. skin denies: diaphoresis, rash. neurologic denies: change loc, dizziness, focal weakness, h eadache, numbness, slurred speech. additional review of systems respiratory denies: pleuritic pain, (+) shortness of breath. cardiovascular denies: chest pain, dyspnea on exertion, palpita tions. (+) syncope past medical history - adult stated complaint preg,high bp,dizziness,vomiting ,arturo allergies coded allergies: ceftriaxone (from rocephin) (severe, anaphylaxis 05/18/21) trazodone (severe, shortness of breath 04/15/22) home medications active scripts acetaminophen/codeine (tylenol with code ine #3 300/30 mg) 1 tab po q3h prn prn moderate pain (scale 4-6) acetaminophen/codeine (tylenol with codeine #3 300/30 mg) 1 tab po q3h prn prn moderate pain (scale 4-6) #30 tab prov: 05/21/21 ibuprofen (motrin) 600 mg po q6h prn prn mild pa in not relieved by tyl. ibuprofen (motrin) 600 mg po q6h prn prn mild pain not relieved by tyl. #30 tab ref 2 prov: 05/21/21 senna (senokot) 2 tab po bedtime senna (senokot) 2 tab po bedtime #24 tab ref 2 prov: 05/21/21 hydrocortisone (anusol-hc 2.5%) 1 applic rectal bid prn prn hemorrhoid and episiotomy pain hydrocortisone (anusol-hc 2.5%) 1 applic rectal bid prn prn hemorrhoid and episiotomy pain #30 gm ref 2 prov: 05/21/21 reported medications escitalopram (lexapro) 10 mg po daily additional medical history denies significant medical history past surgical history: reports: tonsillectomy. additional family history denies significant family history alcohol use denies etoh use drug use denies recreational drugs other social history good social support physical exam vital signs vital signs first documented: result date time pulse ox 98 04/15 1320 b/p 128/69 04/15 1320 b/p mean 88 04/15 1320 o2 delivery room air 04/15 1320 temp 98.2 04/15 1320 pulse 81 04/15 1320 resp 18 04/15 1320 last documented: result date time pulse ox 98 04/15 1601 b/p 107/55 04/15 1601 b/p mean 72 04/15 1601 temp 98.0 04/15 1601 pulse 73 04/15 1601 resp 18 04/15 1601 o2 delivery room air 04/15 1320 review of vital signs reviewed, vital signs norm al focused pe general/const general/const awake, alert, well appearing ms head head atraumatic, normocephalic eyes eyes perrl, eomi, conjunctiva nl ears/nose/throat ears/nose/throat airway patent, mucous membrane s moist, pharynx nl ms neck neck supple, full range of motion, no swelling, non-tender resp/chest respiratory/chest breath sounds nl, breath soun ds = bilat, no respiratory distress, no rales, no rhonchi, no wheezing cardiovascular cardiovascular heart rate nl, regular rhythm, h eart sounds nl, no murmurs, cap refill not delayed, peripheral circulation n l abdomen/gi abdomen/gi soft, non-tender, no guarding, no re bound ms back back inspection nl, non-tender, no cva tenderne ss ms lower extrem lower ext/pelvis/ms inspection nl, no swelling, non-tender, no erythema, no deformity, neurologic intact, vascular intact, n o edema skin skin color nl, warm, dry, turgor nl neurologic neurologic oriented x3, speech nl, no m otor deficits, no sensory deficits, cn ii - xii intact, cerebellar nl psychiatric psychiatric affect nl, mood nl, cognitive funct ion nl, thought content nl interpretation diagnostics lab results interpretation results laboratory tests 04/15/22 1325: [embedded image not available] laboratory tests: 04/15 04/15 1339 1325 chemistry sodium (135 - 145 meq/l) 136 potassium (3.5 - 5.0 meq/l) 3.9 chloride (100 - 115 meq/l) 100 carbon dioxide (22 - 31 meq/l) 26 anion gap (10 - 20) 14.00 bun (7 - 18 mg/dl) 11 creatinine (0.5 - 1.0 mg/dl) 0.8 glomerular filtr rate (>60 ml/min) 87 glucose (65 - 110 mg/dl) 97 calcium (8.4 - 10.2 mg/dl) 8.7 total bilirubin (0.2 - 1.0 mg/dl) 0.3 ast (15 - 37 units/l) 23 alt (12 - 78 units/l) 28 total alk phosphatase (46 - 116 units/l) 67 total protein (6.3 - 8.2 gm/dl) 7.5 albumin (3.4 - 4.8 gm/dl) 3.8 hematology wbc (6.5 - 12.3 k/mm3) 10.9 rbc (3.51 - 4.69 m/mm3) 4.66 hgb (10.1 - 13.8 g/dl) 13.5 hct (32.5 - 41.8 %) 40.0 mcv (84.6 - 96.6 fl) 85.8 mch (27.3 - 33.9 pg) 29.0 mchc (32.0 - 34.2 gm/dl) 33.8 rdw (12.2 - 16.3 %) 12.6 plt count (134 - 363 k/mm3) 311 mpv (9.2 - 12.7 fl) 9.6 neut % (auto) (57.9 - 77.3 %) 71.1 lymph % (auto) (14.5 - 29.7 %) 23.4 mono % (auto) (3.6 - 10.2 %) 4.5 eos % (auto) (0.0 - 3.0 %) 0.4 baso % (auto) (0.1 - 0.9 %) 0.3 neut # (auto) (k/mm3) 7.8 lymph # (auto) (k/mm3) 2.6 mono # (auto) (k/mm3) 0.5 eos # (auto) (k/mm3) 0.04 baso # (auto) (k/mm3) 0.0 miscellaneous maternal serum hcg [address] urines urine color (yellow) yellow urine appearance (clear) cloudy h urine ph (5 - 9) 6.5 ur specific gravity (1.001 - 1.035) 1.020 urine protein (negative) negative urine glucose (ua) (negative) negative urine ketones (negative) negative urine blood (negative) 3+ h urine nitrite (negative) negative urine bilirubin (negative) negative urine urobilinogen (<=1.0 eu/dl) 0.2 ur leukocyte esterase (negative) 2+ h urine rbc (none seen #/hpf) 3-5 h urine wbc (none seen #/hpf) 11-15 h ur epithelial cells (rare - few #/hpf) moderate h urine bacteria (none seen #/hpf) rare microbiology: date/time procedure - status source growth 04/15 1432 urine culture - recd urine recent impressions: ultrasound - dup ab/pel/sc/ltd 04/15 1417 report impression - status: signed entered: 04/15/2022 1515 impression: live intrauterine with gestational age 6 weeks 1 day. impression by: eyal roe md ultrasound - us preg ut transvaginal 04/15 141 report impression - status: signed entered: 04/15/2022 1515 impression: live intrauterine with gestational age 6 weeks 1 day. impression by: eyal roe md ultrasound - us preg eval 1st trimtr 04/15 1417 report impression - status: signed entered: 04/15/2022 1515 impression: live intrauterine with gestational age 6 weeks 1 day. impression by: eyal roe md radiology - xr chest 1 v 04/15 1453 report impression - status: signed entered: 04/15/2022 1511 impression: no acute cardiopulmonary findings. impression by: [email or web address] - juan reddy lab imaging statement laboratory radiographic studies reviewed and con sidered in the medical decision-making. re-evaluation mdm free text mdm notes free text mdm notes a/p: 26yo @ 7w6d wf with pmh as above p/w s yncope 1. labs 2. tvus 3. ua 4. meds 5. re-assess addendum time: 1605 labs wnl. tvus shows siup at 6w1d with small sub chorionic hemorrhage. ua c/w uti. pt re-assessed; symptoms improved. results of work-up d/w pt; voiced understanding. ok for dc home with pcp follow-up )( re-evaluation/progress #1 )( re-eval status improved plan post re-eval plan discharge syncope adult mdm note this patient presented with a history of a syncopal episode. the patient is now resting comfortably and feels better, is alert, and is in no distress. the repeat examination is unremarkable and benign. t he patient is neurologically intact, has a normal mental status, and is ambul atory in the ed. the electrocardiogram shows no signs of acute ischem ia, and the history, exam, diagnostic testing and current condition do not suggest that this patient is having an acute myocardial i nfarction, significant arrhythmia, unstable angina, a stroke/tia, a significant vascular casey nt, gastrointestinal bleeding, sepsis, or other significant patholo gy that would warrant further testing, continued ed treatment, admission, or cardiology or other spe cialist consultation at this point. the vital signs have been stable. the patient's condition is stable and appropriate for discharge. t he patient will pursue further outpatient evaluation with the primary care physic rachel, other designated physician or transportation economics teacher. the patient and/or caregivers robles ve expressed a clear and thorough understanding and agree to follow up as instructed. patient discharge departure vital signs/condition vital signs first documented: result date time pulse ox 98 09/03 1320 b/p 128/69 04/15 1320 b/p mean 88 04/15 1320 o2 delivery room air 04/15 1320 temp 98.2 04/15 1320 pulse 81 04/15 1320 resp 18 04/15 1320 last documented: result date time pulse ox 98 04/15 1601 b/p 107/55 04/15 1601 b/p mean 72 04/15 1601 temp 98.0 04/15 1601 pulse 73 / 1601 resp 18 04/15 1601 o2 delivery room air 04/15 1320 all vital signs available at the time of this en try have been reviewed. clinical impression clinical impression primary impression: syncope secondary impressions: 7 wee ks gestation of , asymptomatic bacteriuria during , subchorionic hemorrhage in fir st trimester disposition decision discharge )( discharged to home yes )( time 1609 )( date 04/15/22 discharge/care plan counseled regarding diagnosi s, lab results, imaging studies, prescriptions, need for follow-up, when to return to ed (auto) prescriptions current visit scripts nitrofurantoin/nitrofuran mac (macrobid) 100 mg po bid nitrofurantoin/nitrofuran mac (macrobid) 100 mg po bid #14 caps until finished. take with food. patient instructions bleeding during early pregn [place], [facility] women additional instructions see handout on subchorionic hemorrhage referrals provider referral: jonathan kapoor md address: [address] [place] [address] [address] [place] [address] discharge note i have spoken with the patie nt and/or caregivers. i have explained the patient's condition, diagnoses and ash atment plan based on the information available to me at this time. i have answered the patient's and/ or caregiver's questions and addressed any concerns. the patient and/or careg pascual have as good an understanding of the patient 's diagnosis, condition and treatment plan as can be expected at this point. the vital signs have bee n stable. the patient's condition is stable and appr opriate for discharge from the emergency department. the patient will pursue further outpatient evalu ation with the primary care physician or other designated or consulting phys ician as outlined in the discharge instructions. the patient and/or caregivers are agreeable to this plan of care and follow-up instructions have been exp lained in detail. the patient and/or caregivers have received these instructio ns in written format and have expressed an understanding of the discharge inst ructions. the patient and/or caregivers are aware that any significant change in condition or worsening of symptoms should prompt an immediate return to [facility] or the closest emergency department or a call to 911. quality measures us in preg w/ap/vb trans-abd/vag us done, preg l ocation documented rh- risk fet bld exposure no risk blood ex pos electronically signed by mallika logan md on 04/15/22 at 1747 rpt #:[id number] end of report 2021-05-21 09:43:00-00:00 [facility] ([facility]) OB Disch REPORT#:[id number] REPORT STATUS: Signed DATE:05/21/21 TIME: 0943 PATIENT: TRANG CORREA UNIT #: [id number] ROOM/BED: [address] : 95 AGE: 25 SEX: F ATTEND: Savannah Kapoor MD ADM AUTHOR: Jonathan Kapoor * ALL edits or amendments must be made on the [employer]/computer document * Subjective Subjective Admission EGA: Weeks: 41 Days: 2 EGA at delivery (wks/days): 41 weeks Status/day: post (Day 2) Patient reports: Patient reports: Yes: normal lochia, pain management effective, tolerating po well, voiding well, voiding without pain, tolerating ambulatio n, flatus. No: complaints. Nursing reports: Nursing reports: No: complaints. Comments: uncomplicated course Objective General VS: Vital Signs Date Temp Pulse Resp B/P B/P Mean Pulse Ox FiO2 05/20-05/21 98.1-98.3 65-73 16-20 106-116/68-79 Last Documented: Result Date Time B/P 05/21 Temp 98.1 05/21 756 Pulse 65 05/21 075 Resp 16 05/21 756 B/P Mean 84.0 05/19 2215 PATIENT WEIGHT: Weight (lb): 197 Weight (oz): Weight (kg): 89.358 Physical Exam Breasts: Breasts: filling, non-tender, no erythema Flow: colostrum, milk Nipples: normal, intact Feeding: breast Nursing: well Cardiac: normal rhythm, no clinically sig murmur Lungs: clear to auscultation Neuro: Exam: alert, oriented x3, normal speech DTR's (lower extr): normal 1-2+ Abdomen: post gravid, soft, no abnormal tenderne ss Incision site: none Uterus: involution appropriate, non-tender Fundus: firm, at the umbilicus, non-tender Lochia: normal, moderate Episiotomy or laceration: well approximated edge s, no inflammation Vulva/Perineum: normal, no hematoma CVA tenderness: none Lower extremities: Edema: trace Mary's sign: negative Calf tenderness: negative Results Findings/Data: Laboratory Tests: 05/20 643 Hematology WBC (6.5 - 12.3 K/mm3) 18.2 H RBC (3.51 - 4.69 M/mm3) 3.06 L Hgb (10.1 - 13.8 g/dL) 9.6 L Hct (32.5 - 41.8 %) 28.1 L MCV (84.6 - 96.6 fL) 91.8 MCH (27.3 - 33.9 pg) 31.4 MCHC (32.0 - 34.2 gm/dL) 34.2 RDW (12.2 - 16.3 %) 13.0 Plt Count (134 - 363 K/mm3) 178 MPV (9.2 - 12.7 fL) 10.2 Neut % (Auto) (57.9 - 77.3 %) 81.9 H Lymph % (Auto) (14.5 - 29.7 %) 11.8 L [place] % (Auto) (3.6 - 10.2 %) 5.4 Eos % (Auto) (0.0 - 3.0 %) 0.1 Baso % (Auto) (0.1 - 0.9 %) 0.2 Neut # (Auto) (K/mm3) 14.9 Lymph # (Auto) (K/mm3) 2.2 [place] # (Auto) (K/mm3) 1.0 Eos # (Auto) (K/mm3) 0.02 Baso # (Auto) (K/mm3) 0.0 Blood type A+ Results: no new labs, labs reviewed, vital signs stable Treatments Procedures Treatments Procedures: Induction of labor with cytotec and oxyt ocin, epidural anesthesia. Low forceps delivery 2nd degree episiotomy. uncomplicated po st course Discharge Summary General Free Text A P: 89 y/o G1 admitted at 41 2/7 weeks for inductio n Assessment: nml progress, breast feed ing w/o diff Date of admission: Date of admission: 05/18/21 Admission diagnosis: post-term Hospital course: cervical ri pening, induction of labor, forceps assist vag deliv , epidural anesthesia, nml postop/postpart care Procedures: hysterectomy (circumcision Day 1), e pidural anesthesia, forceps vaginal delivery, episiotomy Discharge condition: stable Discharge to: Home/Self Care Discharge diagnosis: full-term uncomp delivery, post-term Discharge management: less than 30 mins Time spent: Time spent with patient (minutes): 15 >50% spent on counseling/coordination of care: yes Baby A: Vaginal delivery: operative vag del forceps status: live born Gender: male 1 minute: 9 5 minutes: 9 Anomalies: none noted Vaginal packing at delivery: No Discharge Instructions Diet: Regular Additional discharge routines: Attending Follow- Up Discharge meds: Start taking the following new medications: ACETAMINOPHEN/CODEINE (TYLENOL WITH CODEINE #3 3 00/30 MG) 300 MG-30 MG TAB 1 TABLET ORAL EVERY 3 HOURS NEEDED. as neede d for MODERATE PAIN (SCALE 4 -6) Qty = 30 No Refills IBUPROFEN (MOTRIN) 600 MG TAB 600 MILLIGRAM ORAL EVERY 6 HOURS NEEDED. as needed for MILD PAIN NOT RELIEVED BY TYL. Qty = 30 Refills = 2 SENNA (SENOKOT) 8.6 MG TAB 2 TABLET ORAL BEDTIME. Qty = 24 Refills = 2 HYDROCORTISONE (ANUSOL-HC 2.5%) 2.5 % CREAM 1 APPLIC RECTAL. TWICE DAILY NEEDED. as need ed for hemorrhoid and episiotomy pain Qty = 30 Refills = 2 Instructions: UNTIL RESOLVED Consultation(s): Consultation performed: anesthesia Reason for consultation: epidural on request Add'l Follow-up Appointments Attending Physician: Attending Physician: Jonathan Kapoor MD at 0951 RPT #:[id number] END OF REPORT 2021-05-19 21:25:00-00:00 [facility] OB Delivery Note REPORT#:[id number] REPORT STATUS: Signed DATE:05/19/21 TIME: 2124 PATIENT: TRANG CORREA UNIT #: [id number] ROOM/BED: [address] : 95 AGE: 25 SEX: F ATTEND: Savannah Kapoor MD ADM AUTHOR: Jonathan Kapoor MD * ALL edits or amendments must be made on the el [employer]/computer document * OB Delivery Pre-delivery GBS status: GBS status: negative Prophylaxis administered: none evaluation at delivery: NRP certified pe rsonnel Admission EGA: Weeks: 41 Days: 2 EGA at delivery (wks/days): 41 weeks Admission indication: 41 2/7 weeks admitted for cervical ripening and induction of labor Baby A Information Baby A information Delivery date: 05/19/21 Delivery time: 1939 status: live born Wt of baby (grams): 3960 Wt of baby (lbs/oz): 8lbs 11.6oz Gender: male 1 minute: 9 5 minutes: 9 Presentation: vertex (GEETA) Anomalies: none noted ABG details Baby A Cord blood gases: not collected Nuchal cord Baby A Nuchal cord: no Additional comments: Prolonged 2 nd stage and maternal exhaustion. Vaginal Delivery Vaginal delivery: Labor: induced Medications/Devices used: oxytocin, cytotec Vaginal delivery: operative vag del forceps Amniotic fluid: clear Anesthesia type: combined spinal/epidural Episiotomy: midline (2nd degree) Episiotomy repair: yes, 2-0 suture (chromic) Laceration repair: no, not required Placenta: spontaneous, expressed, intact Post delivery meds used: oxytocin Count: correct, vag exam neg for sponges Vaginal packing: No Mother's condition: mother stable 's condition: infant stable in room Lacerations: Perineal laceration(s): None High vaginal laceration: no Extraction details OVD performed: yes OVD type: low forceps Indications: prolonged second stage, maternal i ndications (exhaustion) Pt counseling: indications discussed, risks dis cussed, questions answered, patient consent obtained Extraction assessment: cervix completely dilate d, nursery anesth notified, mat-fet size appr for josee, bladder empty Degree of rotation: 0-45 degrees station: low (+2 to +4) Position of head: GEETA Episiotomy or incision: incis well approximated total traction time (minutes): 0.5 Forceps type: Mayur-Marie Forceps detail: cath prior to forcep appl, bailey e/lock appro w/o diff, adv station w/ea traction, extraction successful Extraction outcome: extraction successful head assessment: normal Additional comments: Low froceps delivery from GEETA position at =3 sta tion. Easy extraction Blood Loss/Details Blood loss at delivery: <1K: no sx hypovol=no he m QBL at delivery (ml's): 350 EBL at delivery (ml's): 350 at 2136 RPT #:[id number] END OF REPORT 2021-05-19 07:33:00-00:00 [facility] ([facility]) Clinical Note REPORT#:[id number] REPORT STATUS: Signed DATE:05/19/21 TIME: 732 PATIENT: TRANG CORREA UNIT #: [id number] ROOM/BED: [address] : 95 AGE: 25 SEX: F ATTEND: Savannah Kapoor MD ADM AUTHOR: Jonathan Kapoor * ALL edits or amendments must be made on the [employer]/computer document * Clinical Note Note: She has had brisk response to cytotec and has robles d the typical tachysystole response. Baby has low basel ine and curreently asleep, but otherwise Category [address] has [address] d and she is sleeping. Last Nurse's exam reported 4 cm, 70%, -2 at 5:36. Still intact. Plan: Will go ahead with KRUPA M and add oxytocin as needed to maintain mechanism. Need to start to see descent. at 0738 RPT #:[id number] END OF REPORT 2021-05-18 21:54:00-00:00 [facility] OB Admission / H P REPORT#:[id number] REPORT STATUS: Signed DATE:05/18/21 TIME: 2153 PATIENT: TRANG CORREA UNIT #: [id number] ROOM/BED: [address] : 95 AGE: 25 SEX: F ATTEND: Savannah Kapoor MD ADM AUTHOR: Jonathan Kapoor MD * ALL edits or amendments must be made on the [employer]/computer document * OB History Chief complaint: scheduled induction, post term HPI: 25 y/o G1 with best estimate EDC 1, now 41 2/7 weeks. Antepartum course uncomplicated but LGA growth, unfavorable cervix for iduction attempt history: : 1 Term: 0 : 0 Abortus: 0 Living children: 0 Complications (prev preg): none Previous : none Current : Best EDC: 05/09/21 Admission EGA (weeks) 41 Admission EGA (days) 2 EDC based on: LMP, ultrasound, 1st trimester, u ltrasound, 2nd trimester Conditions of : post-term , LG A growth Labs: Blood type: A Rh: positive Rubella: immune Hepatitis B: negative HIV: negative STD: negative Syphilis: currently negative GBS: negative Procedures: ultrasound, genetic testing Genetic testing: chromosomal disorder, cystic fibrosis, Down syndrome, Fragile X , neural tube defect, sickle cell disease, thala ssemia Notes: Glucose screen normal (124), NIPT normal male Past History Additional Medical History: denies significant medical history Past Surgical History: Reports: Tonsillectomy. Additional Family History Denies significant family history Alcohol Use Denies EtOH use Drug Use Denies recreational drugs Smoking status: Smoking status for patients 13 years old or old er: Never Smoker Other Social History Good social support Medications: PNV Allergies: Coded Allergies: ceftriaxone (From ROCEPHIN) (Severe, ANAPHYLAXIS 05/18/21) Objective General VS: Last Documented: Result Date Time B/P Mean 93.0 05/18 2012 B/P 120/77 05/18 2012 Temp 98.6 05/18 2012 Pulse 86 05/18 2012 Resp 16 05/18 2012 Vital Signs Date Temp Pulse Resp B/P B/P Mean Pulse Ox FiO2 05/18 98.6 86 16 120/77 93.0 PATIENT WEIGHT: Weight (lb): 197 Weight (oz): Weight (kg): 89.358 Physical Exam HEENT: normocephalic w/o injury, no lesions of m outh, no lesions of throat Cardiac: regular rate and rhythm, no clinically sig murmur Lungs: clear to auscultation Breasts: deferred Neuro: Exam: alert, oriented x3, normal speech DTR's (lower extr): normal 1-2+ Abdomen: gravid, soft, no abnormal tenderness Uterine activity: Monitor: toco Frequency (description): occasional Duration (seconds): 50 Intensity: mild Resting tone: relaxed Tachysystole: No Pelvic exam: Pelvis clinically adequate: yes (adequate for l abor trial but L), adequate for labor trial but LGA baby Vulvar lesions: none Vagina: normal Uterus size in weeks: 40 Exam: soft, non-tender (LGA) Cervical/ exam: Dilatation (cm): 1 Effacement (%): 50 Est wt (gms): 3950 Suspected macrosomia: No (LGA is suspecte d) Suspected > 5000 grams: No station: - 2 presentation: cephalic Membranes: Membranes: Intact Lower extremities: Edema: trace Mary's sign: negative Calf tenderness: negative Additional comments: LGA baby with unfavorable ce rvix at 41 2/7 weeks for attempt at labor induction. Cervical ripening with cytotec planned Baby A: Baby A baseline: 145 bpm Baby A variability: moderate 6-25 bpm Baby A accelerations: 15 X 15 Baby A decelerations: none Baby A FHR category: category 1 Result Findings/Data: Laboratory Tests: 05/18 Hematology WBC (6.5 - 12.3 K/mm3) 13.4 H RBC (3.51 - 4.69 M/mm3) 4.03 Hgb (10.1 - 13.8 g/dL) 12.5 Hct (32.5 - 41.8 %) 36.6 MCV (84.6 - 96.6 fL) 90.8 MCH (27.3 - 33.9 pg) 31.0 MCHC (32.0 - 34.2 gm/dL) 34.2 RDW (12.2 - 16.3 %) 13.1 Plt Count (134 - 363 K/mm3) 254 MPV (9.2 - 12.7 fL) 10.3 Neut % (Auto) (57.9 - 77.3 %) 76.7 Lymph % (Auto) (14.5 - 29.7 %) 17.5 [place] % (Auto) (3.6 - 10.2 %) 4.9 Eos % (Auto) (0.0 - 3.0 %) 0.4 Baso % (Auto) (0.1 - 0.9 %) 0.1 Neut # (Auto) (K/mm3) 10.3 Lymph # (Auto) (K/mm3) 2.4 [place] # (Auto) (K/mm3) 0.7 Eos # (Auto) (K/mm3) 0.05 Baso # (Auto) (K/mm3) 0.0 Serology Treponema pallidum Ab (NONREACTIVE) NONREACTIVE Hep Bs Antigen (NONREACTIVE) NONREACTIVE Hepatitis C Antibody (NONREACTIVE) NONREACTIVE Hep C Ab Signal/Cutoff (<0.80) <0.02 HIV 1 2 Antibody (NONREACTIVE) NONREACTIVE SARS-CoV-2 Ag (Rapid) (NEGATIVE) NEGATIVE Results: no new labs, labs reviewed, vital signs stable Diagnosis, Assessment Plan Diagnosis, Assessment Plan Free Text A P: 25 y/o G1 at 41 2/7 weeks by best estimates, unfavorable cervix and suspected L: GA baby for ripening and induction attempe. Assessment/Impression: reass uring status, normal FHR pattern, no evidence of labor Plan: admit to inpatient, induction of labor, sc heduled induction, delivery Reason-sched induction: post term Consultation(s): Consultation performed: anesthesia Reason for consultation: epidural on request Additional comments: Patient understands that this is a labor trial and section likelyhood is high. She wishes to give it a try so will go with cyto radha for 12 hours to ripen. Plan discussed with: patient, family, nurse at 2216 RPT #:[id number] END OF REPORT"
[2023-02-19] MEDS ORDERED: FAMOTIDINE 20 MG/2 ML VIAL IV ONE (22:10)
[2023-02-19] MEDS ORDERED: NA CHLORIDE 0.9% 1,000 ML ONE (22:10)
[2023-02-19 22:24] LABS: Absolute Lymphocytes (CBC) 3.6 K/uL (0.7-4.9); Hematocrit 34.8 % (36.0-45.0); MCV 84.2 fL (80-100); MPV 7.8 fL (7.6-11.3); RBC Red Blood Cell Count 4.14 M/uL (3.86-4.86)
[2023-02-19 22:28] LABS: Specific Gravity 1.013 (1.005-1.030)
[2023-02-19 22:32] LABS: Specific Gravity 1.013 (1.005-1.030); Urine Bacteria <20 /HPF (<20); Urine Bilirubin NEGATIVE (Negative); Urine Blood Negative (Negative); Urine Clarity Extremely Turbid (Clear); Urine Color Light-Yellow (Yellow); Urine Crystals Unidentified Few /HPF (None Seen); Urine Glucose NEGATIVE (Negative); Urine Protein NEGATIVE (Negative); Urine RBC <5 /HPF (None Seen); Urine Urobilinogen Normal (Normal)
[2023-02-19 22:37] LABS: Potassium 3.2 mEq/L (3.5-5.1)
[2023-02-19] MEDS ORDERED: POTASSIUM 25 MEQ EFFERV TAB ONE (23:09)
[2023-02-19] MEDS ORDERED: ONDANSETRON 4 MG/2 ML VIAL ONE (23:09)
--- NOTE | 2023-02-20 01:04 | EDPHYS ---
Physician Documentation [facility] Name: Jaciel Ontiveros Age: 27 yrs Sex: Female : 1995 Arrival Date: 02/19/2023 Time: 21:31 Bed 9 Private MD: ED Physician Isidro Hernandez HPI: 02/19 21:55 This 27 yrs old Female presents to ER via Wheelchair with complaints of Allergic cp Reaction. 21:55 The patient presents with throat closing. cp 21:55 Onset: The symptoms/episode began/occurred suddenly, 30 minute(s) ago. At home the cp patient or guardian has treated the symptoms with EpiPen. 21:55 Associated signs and symptoms: Pertinent positives: rash, Pertinent negatives: cp abdominal pain, chest pain, dysphagia, fever. Possible causes: The patient has no known obvious cause for the symptoms, currently being evaluated for autoimmune disorder. Severity of symptoms: in the emergency department the symptoms have improved mildly. Historical: - Allergies: 21:37 Adhesives; cm10 21:37 Rocephin; cm10 21:37 trazodone (bulk); cm10 21:37 tomatoes; cm10 21:37 onions; cm10 - Home Meds: 02/20 01:44 Flonase 50 mcg/actuation Nasal spsn 1 spray 2 times per day [Active]; kl - PMHx: 02/19 21:38 Autoimmune disease; cm10 - Immunization history:: Adult Immunizations unknown. - Social history:: Smoking status: Patient denies any tobacco usage or history of. ROS: 22:00 Constitutional: Negative for fever. cp 22:00 Eyes: Negative for injury, pain, redness, and discharge. cp 22:00 ENT: Positive for sensation of throat closing, Negative for drainage from ear(s), ear pain, sore throat, difficulty swallowing, difficulty handling secretions. 22:00 Cardiovascular: Negative for chest pain, palpitations. 22:00 Respiratory: Negative for shortness of breath. 22:00 Abdomen/GI: Negative for abdominal pain, vomiting, diarrhea, constipation. 22:00 : Negative for urinary symptoms, vaginal bleeding. 22:00 Neuro: Negative for altered mental status, dizziness, headache, numbness, weakness. 22:00 All other systems are negative. Exam: 22:05 Constitutional: The patient appears in no acute distress, alert, awake, non-toxic, well cp developed, well nourished. 22:05 Head/Face: Normocephalic, atraumatic. cp 22:05 Eyes: Periorbital structures: appear normal, Conjunctiva: normal, no exudate, no injection, Sclera: no appreciated abnormality, Lids and lashes: appear normal, bilaterally. 22:05 ENT: External ear(s): are unremarkable, Ear canal(s): are normal, clear, TM's: dullness, bilaterally, Nose: is normal, Mouth: Lips: moist, Oral mucosa: pink and intact, moist, Posterior pharynx: is normal, airway is patent, no erythema, no exudate. 22:05 Neck: ROM/movement: is normal, is supple, without pain, no range of motions limitations, no meningismus, no nuchal rigidity. 22:05 Chest/axilla: Inspection: normal. 22:05 Cardiovascular: Rate: normal, Rhythm: regular. 22:05 Respiratory: the patient does not display signs of respiratory distress, Respirations: normal, no use of accessory muscles, no retractions, labored breathing, is not present, Breath sounds: bronchial sounds, that are mild, are heard diffusely, stridor, is not appreciated, wheezing: is not appreciated. 22:05 Abdomen/GI: Inspection: gravid appearance, is noted, Palpation: abdomen is soft and non-tender, in all quadrants. 22:05 Skin: rash can be described as scattered areas of hyperpigmentation, on the right arm. 22:05 Neuro: Orientation: to person, place \T\ time. Mentation: is normal, Cerebellar function: is grossly normal, Motor: moves all fours, strength is normal, Sensation: no obvious gross deficits. Vital Signs: 21:34 BP 140 / 76; Pulse 87; Resp 16; Temp 98.6(TE); Pulse Ox 100% on R/A; Weight 78.93 kg; cm10 Height 5 ft. 3 in. ; Pain 6/10; 23:06 BP 104 / 76; Pulse 93; Resp 16; Pulse Ox 100% ; kl 02/20 01:43 BP 108 / 64; Pulse 71; Resp 18; Pulse Ox 99% on R/A; kl 02/19 21:34 Body Mass Index 30.82 (78.93 kg, 160.02 cm) cm10 02/19 21:34 Pain Scale: Adult cm10 MDM: 02/19 21:45 Patient medically screened. 22:00 Differential diagnosis: anaphylaxis, angioedema, non IgE mediated drug reaction cp urticaria. 02/20 01:02 Data reviewed: vital signs, nurses notes, lab test result(s). 01:02 Consideration of Admission/Observation Escalation of care including cp admission/observation considered. I considered the following discharge prescriptions or medication management in the emergency department Medications were administered in the Emergency Department. See MAR. Counseling: I had a detailed discussion with the patient and/or guardian regarding: the historical points, exam findings, and any diagnostic results supporting the discharge/admit diagnosis, lab results, the need for outpatient follow up, an OB/Gyne specialist, to return to the emergency department if symptoms worsen or persist or if there are any questions or concerns that arise at home. Response to treatment: the patient's symptoms have markedly improved after treatment, and as a result, I will discharge patient. 02/19 21:49 Order name: CBC with Diff; Complete Time: 22:53 02/19 22:54 Interpretation: Normal except: WBC 13.40; HGB 11.9; HCT 34.8; NEUT A 9.0. 02/19 21:49 Order name: BMP; Complete Time: 22:53 02/19 22:54 Interpretation: Normal except: K 3.2; GLUC 160; CA 8.2. 02/19 21:49 Order name: Urinalysis W/Microscopic; Complete Time: 22:53 02/19 21:49 Order name: PREGU; Complete Time: 22:53 02/19 22:03 Order name: Glucose, Ancillary Testing; Complete Time: 22:53 EDMS 02/19 21:49 Order name: FHT's; Complete Time: 22:26 02/19 21:49 Order name: IV; Complete Time: 22:18 02/20 00:31 Order name: PO challenge cp Administered Medications: 02/19 22:10 Drug: NS 0.9% IV 1000 ml Route: IV; Rate: 500 ml/hr; Site: left hand; 02/20 00:26 Follow up: IV Status: Completed infusion; IV Intake: 1000ml 02/19 22:14 Drug: diphenhydrAMINE IVP 50 mg Route: IVP; Site: left hand; kl 22:56 Follow up: Response: No adverse reaction; Marked relief of symptoms kl 22:18 Drug: MethylPrednisoLONE IVP 125 mg Route: IVP; Site: left hand; kl 22:57 Follow up: Response: No adverse reaction; Marked relief of symptoms kl 22:26 Drug: Famotidine IVP 20 mg Route: IVP; Site: left hand; kl 22:57 Follow up: Response: No adverse reaction; Marked relief of symptoms kl 22:59 CANCELLED (Duplicate Order): Ondansetron IVP 4 mg IVP once; over 2 minutes kl 23:06 Drug: Potassium PO Effervescent Tablet 50 mEq Route: PO; kl 23:06 Drug: Ondansetron IVP 4 mg Route: IVP; Site: left hand; kl Disposition: 02/20 20:34 Co-signature as Attending Physician, Isidro Hernandez MD I agree with the assessment sp4 and plan of care. I reviewed the patient's care provided by the Advanced Practice Provider and agree with the diagnosis and treatment plan. Disposition Summary: 02/20/23 01:03 Discharge Ordered Location: Home cp Problem: an ongoing problem cp Symptoms: have improved cp Condition: Stable cp Diagnosis - Allergy, unspecified cp Followup: cp - With: Private Physician - When: 1 - 2 days - Reason: Recheck today's complaints Discharge Instructions: - Discharge Summary Sheet cp Forms: - Medication Reconciliation Form cp - Thank You Letter cp - Antibiotic Education cp - Prescription Opioid Use cp - Patient Portal Instructions.htm cp Prescriptions: - Pepcid 20 mg Oral Tablet - take 1 tablet by ORAL route every 12 hours for 10 days; 20 tablet; Refills: 0, cp Product Selection Permitted - Prednisone 20 mg Oral Tablet - take 2 tablets by ORAL route once daily for 5 days; 10 tablet; Refills: 0, cp Product Selection Permitted Signatures: Dispatcher [employer] Tangela Vargas RN RN Edis Rubio PA PA cp Potepalov, Sergey, MD MD sp4 Eunice Palmer RN RN cm10 Corrections: (The following items were deleted from the chart) 02/19 22:59 22:57 Ondansetron IVP 4 mg IVP once; over 2 minutes ordered. [facility] :59 22:58 Ondansetron IVP 4 mg IVP once; over 2 minutes ordered. kl kl
--- NOTE | 2023-02-20 01:04 | ER ---
Nurse's Notes [facility] Name: Jaciel Ontiveros Age: 27 yrs Sex: Female : 1995 Arrival Date: 02/19/2023 Time: 21:31 Bed 9 Private MD: Diagnosis: Allergy, unspecified Presentation: 02/19 21:34 Chief complaint: Spouse and/or significant other states: Pt had an allergic reaction to cm10 dinner they had tonight. 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 Pt also had an allergic reaction earlier this afternoon and used benadryl. Pt is 14 weeks . Coronavirus screen: Vaccine status: Patient reports being unvaccinated. Ebola Screen: No symptoms or risks identified at this time. Onset: The symptoms/episode began/occurred just prior to arrival. Anaphylaxis evaluation, the patient reports or I have noted the following symptoms which indicate a significant risk of anaphylaxis: chest pain lump in the throat which may suggest laryngeal edema shortness of breath. Initial Sepsis Screen: Does the patient meet any 2 criteria? No. Patient's initial sepsis screen is negative. Does the patient have a suspected source of infection? No. Patient's initial sepsis screen is negative. Risk Assessment: Do you want to hurt yourself or someone else? Patient reports no desire to harm self or others. Onset of symptoms was February 19, 2023. 21:34 Method Of Arrival: Wheelchair cm10 21:34 Acuity: SANDRA 2 cm10 21:49 Care prior to arrival: Medication(s) given: epi pen. kl Historical: - Allergies: 21:37 Adhesives; cm10 21:37 Rocephin; cm10 21:37 trazodone (bulk); cm10 21:37 tomatoes; cm10 21:37 onions; cm10 - Home Meds: 02/20 01:44 Flonase 50 mcg/actuation Nasal spsn 1 spray 2 times per day [Active]; kl - PMHx: 02/19 21:38 Autoimmune disease; cm10 - Immunization history:: Adult Immunizations unknown. - Social history:: Smoking status: Patient denies any tobacco usage or history of. Screenin:[facility] ED Fall Risk Assessment (Adult) History of falling in the last 3 months, including since admission No falls in past 3 months (0 pts) Confusion or Disorientation No (0 pts) Intoxicated or Sedated No (0 pts) Impaired Gait No (0 pts) Mobility Assist Device Used No (0 pt) Altered Elimination No (0 pt) Score/Fall Risk Level 0 - 2 = Low Risk Oriented to surroundings, Maintained a safe environment. Abuse screen: Denies threats or abuse. Nutritional screening: No deficits noted. Tuberculosis screening: No symptoms or risk factors identified. Assessment: 21:48 General: Appears uncomfortable, Behavior is anxious. Pain: Complains of pain in throat kl Pain currently is 4 out of 10 on a pain scale. Neuro: No deficits noted. Cardiovascular: No deficits noted. Respiratory: Airway is patent Trachea midline Respiratory effort is even, unlabored, Breath sounds are clear bilaterally. Derm: No deficits noted. 22:46 Reassessment: FHTs 162. kl 23:06 Reassessment: Patient appears in no apparent distress at this time. Patient denies pain kl at this time. Patient states feeling better. Patient states symptoms have improved. 02/20 00:25 Reassessment: Patient appears in no apparent distress at this time. Patient states kl feeling better. Patient states symptoms have improved. 01:20 Reassessment: Patient appears in no apparent distress at this time. Patient states kl feeling better. Patient states symptoms have improved. Vital Signs: 02/19 21:34 BP 140 / 76; Pulse 87; Resp 16; Temp 98.6(TE); Pulse Ox 100% on R/A; Weight 78.93 kg; cm10 Height 5 ft. 3 in. ; Pain 6/10; 23:06 BP 104 / 76; Pulse 93; Resp 16; Pulse Ox 100% ; kl 02/20 01:43 BP 108 / 64; Pulse 71; Resp 18; Pulse Ox 99% on R/A; kl 02/19 21:34 Body Mass Index 30.82 (78.93 kg, 160.02 cm) cm10 02/19 21:34 Pain Scale: Adult cm10 ED Course: 02/19 21:34 Patient arrived in ED. cm10 21:37 Triage completed. cm10 21:38 Arm band placed on Patient placed in an exam room, on a stretcher. cm10 21:43 Edis Krishnan PA is PHCP. cp 21:43 Isidro Hernandez MD is Attending Physician. cp 21:48 Inserted saline lock: 22 gauge in left hand, using aseptic technique. kl 22:18 PREGU Sent. ah1 22:18 Urinalysis W/Microscopic Sent. ah1 22:18 BMP Sent. ah1 22:18 CBC with Diff Sent. ah1 22:25 PREGU Sent. kl 22:26 BMP Sent. kl 22:26 CBC with Diff Sent. kl 02/20 00:25 No apparent distress. Resting quietly. Appears to be sleeping. kl 01:43 No provider procedures requiring assistance completed. IV discontinued, intact, kl bleeding controlled, No redness/swelling at site. Pressure dressing applied. Administered Medications: 02/19 22:10 Drug: NS 0.9% IV 1000 ml Route: IV; Rate: 500 ml/hr; Site: left hand; kl 02/20 00:26 Follow up: IV Status: Completed infusion; IV Intake: 1000ml 02/19 22:14 Drug: diphenhydrAMINE IVP 50 mg Route: IVP; Site: left hand; kl 22:56 Follow up: Response: No adverse reaction; Marked relief of symptoms kl 22:18 Drug: MethylPrednisoLONE IVP 125 mg Route: IVP; Site: left hand; kl 22:57 Follow up: Response: No adverse reaction; Marked relief of symptoms kl 22:26 Drug: Famotidine IVP 20 mg Route: IVP; Site: left hand; kl 22:57 Follow up: Response: No adverse reaction; Marked relief of symptoms kl 22:59 CANCELLED (Duplicate Order): Ondansetron IVP 4 mg IVP once; over 2 minutes kl 23:06 Drug: Potassium PO Effervescent Tablet 50 mEq Route: PO; kl 23:06 Drug: Ondansetron IVP 4 mg Route: IVP; Site: left hand; Medication: 02/20 01:44 VIS not applicable for this client. kl Intake: 00:26 IV: 1000ml; Total: 1000ml. kl Outcome: 01:03 Discharge ordered by . cp 01:44 Discharged to home ambulatory, with family. kl 01:44 Condition: improved 01:44 Discharge instructions given to patient, family, Instructed on discharge instructions, follow up and referral plans. medication usage, Demonstrated understanding of instructions, follow-up care, medications, Prescriptions given X 2. 01:45 Patient left the ED. kl Signatures: Oracio, TangelaFRANCIS ennis RN, Corey, PA PA cp [place], [facility] Eunice Palmer RN RN cm10 Corrections: (The following items were deleted from the chart) 02/19 21:39 21:34 Chief complaint: Spouse and/or significant other states: Pt had an allergic cm10 reaction to dinner they had tonight. 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 Pt also had an allergic reaction earlier this afternoon and used benadryl. cm10
[2023-02-20 02:04] VITALS: TEMP 98.6
[2023-02-20 02:08] VITALS: BP 108/64; O2SAT 99
== END 2023-02-20 01:45 | disposition home or self-care (01) ==
LOC: ER 21:31
DX: R21 Rash and other nonspecific skin eruption (principal); Z88.3 Allergy status to other anti-infective agents; Z88.5 Allergy status to narcotic agent; Z88.8 Allergy status to other drugs, medicaments and biological substances; Z91.018 Allergy to other foods; Z91.048 Other nonmedicinal substance allergy status
CPT/HCPCS: 96361; 85025; 81001; 80048; 36415; 81025; 82947; 96375; 96374; 99284; J2405; J7030